=== PATIENT | female | born 1965 | race Caucasian/White ===

== ENCOUNTER 2016-10-22 12:58 | Emergency (ER) | payer BC ==
[2016-10-22 13:47] VITALS: BP 144/76
--- NOTE | 2016-10-22 15:30 | UC ---
General HPI - HPI Summary HPI Summary: COUGH AND CONGESTION FOR 1.5 WEEKS WITH SINUS PRESSURE AND EAR FULLNESS. TODAY HAD DIARRHEA AND VOMITNG x1 THIS MORNING. 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 Negative: Dysuria, Edema, Immunocompromised, In-Dwelling Medication Device, Melena, Palpitations, Recent Medication Changes, Syncope, SOB, Trauma, Wheezing, Weakness - Allergy/Home Medications Allergies/Adverse Reactions: Allergies Allergy/AdvReac Type Severity Reaction Status Date / Time Hydromorphone [From Dilaudid] Allergy Diaphoresis Verified 04/03/16 20:16 Latex Allergy Swelling Verified 04/03/16 20:16 Meperidine [From Demerol HCl] Allergy Diaphoresis Verified 04/03/16 20:16 Metformin and Related Allergy Nausea And Verified 04/03/16 20:16 Vomiting Morphine Allergy Diaphoresis Verified 04/03/16 20:16 Prochlorperazine Allergy Rash Verified 04/03/16 20:16 [From Compazine] Promethazine [From Phenergan] Allergy Rash Verified 04/03/16 20:16 Trimethobenzamide Allergy Rash Verified 04/03/16 20:16 [From Tigan] Ibuprofen AdvReac Unknown Verified 04/03/16 20:16 Reaction Details Home Medications: Home Medications GuaiFENesin DM* [Robitussin DM*] 10 ml PO Q6H PRN 10/22/16 [History Confirmed ] PMH/Surg Hx/FS Hx/Imm Hx Previously Healthy: Yes Endocrine History Of: Reports: Diabetes - CORRECTED W/ WEIGHT LOSS Denies: Thyroid Disease Cardiovascular History Of: Reports: Hypertension - CORRECTED W/ WEIGHT LOSS Denies: Cardiac Disorders, Pacemaker/ICD, Congestive Heart Failure Respiratory History Of: Denies: COPD, Asthma GI/ History Of: Denies: Gastroesophageal Reflux, Renal Disease Neurological History Of: Reports: Migraine Denies: CVA, Dementia, Seizures Cancer History Of: Denies: Breast Cancer Other History Of: Negative For: Anticoagulant Therapy - Surgical History Surgical History: Yes Surgery Procedure, Year, and Place: GALLBLADDER , LEFT KNEE, 2003 RT SHOULDER, 2007 RT ELBOW, C SECTION 1997, HYSTERECTOMY 2009; gastric bypass - Family History Known Family History: Positive: None, Cardiac Disease, Hypertension, Diabetes - Social History Occupation: Employed Full-time Lives: With Family Alcohol Use: Occasionally Substance Use Type: None Smoking Status (MU): Never Smoked Tobacco - Immunization History Most Recent Tetanus Shot: not sure Review of Systems Constitutional: Fever, Chills, Fatigue Skin: Negative Eyes: Negative ENT: Ear Ache, Nasal Discharge Respiratory: Cough Cardiovascular: Negative Gastrointestinal: Vomiting, Diarrhea Genitourinary: Negative Motor: Negative Neurovascular: Negative Musculoskeletal: Negative Neurological: Negative Psychological: Negative All Other Systems Reviewed And Are Negative: Yes Physical Exam Triage Information Reviewed: Yes Appearance: Well-Appearing, No Pain Distress, Well-Nourished Vital Signs: Initial Vital Signs Temp 97.8 F 10/22/16 13:44 Pulse 84 10/22/16 13:44 Resp 18 10/22/16 13:44 BP 144/76 10/22/16 13:44 Pulse Ox 97 10/22/16 13:44 Vital Signs Reviewed: Yes Eye Exam: Normal Eyes: Positive: Conjunctiva Clear ENT: Positive: Hearing grossly normal, Pharynx normal, Nasal congestion, TM bulging, TM dull Dental Exam: Normal Neck exam: Normal Neck: Positive: Supple, Nontender, No Lymphadenopathy Respiratory Exam: Normal Respiratory: Positive: Chest non-tender, Lungs clear, Normal breath sounds, No respiratory distress, No accessory muscle use Cardiovascular Exam: Normal Cardiovascular: Positive: RRR, No Murmur, Pulses Normal Abdomen Description: Positive: Nontender, No Organomegaly, Soft Bowel Sounds: Positive: Hyperactive Musculoskeletal Exam: Normal Musculoskeletal: Positive: Strength Intact, ROM Intact, No Edema Neurological Exam: Normal Psychological Exam: Normal Psychological: Positive: Normal Response To Family Course/Dx - Differential Dx - Multi-Symptom Differential Diagnoses: Metabolic Abnormality, Urinary Tract Infection Provider Diagnoses: GASTROENTERITIS. SINUSITIS Discharge - Discharge Plan Condition: Stable Disposition: HOME Prescriptions: Amoxicillin/Clavulanate TAB* [Augmentin TAB 875*] 875 mg PO BID #20 tab Benzonatate CAP* [Tessalon CAP*] 100 mg PO TID PRN #15 cap PRN Reason: Cough Patient Education Materials: Sinusitis (ED), Gastroenteritis (ED) Forms: *Work Release Referrals: Arabella Couch MD [Primary Care Provider] -
== END 2016-10-22 15:25 | disposition home or self-care (01) ==
LOC: UCEAST 12:58
DX: K52.9 Noninfective gastroenteritis and colitis, unspecified (principal); J32.9 Chronic sinusitis, unspecified; Z98.84 Bariatric surgery status; Z88.5 Allergy status to narcotic agent; Z88.6 Allergy status to analgesic agent; Z88.8 Allergy status to other drugs, medicaments and biological substances
CPT/HCPCS: 87502; 99212; G0463

== ENCOUNTER 2016-12-04 15:01 | Emergency (ER) | payer BC ==
[2016-12-04 15:13] VITALS: BP 183/94
[2016-12-04] MEDS ORDERED: HYDROcodone/ACETAMIN 5-325 MG* 1 TAB PO ONE ×2 (15:33→16:44)
--- NOTE | 2016-12-04 16:12 | RAD ---
INDICATION: Dysuria. Flank pain. COMPARISON: CT February 18, 2014 TECHNIQUE: Noncontrast axial source images were acquired from the level hemidiaphragms to the symphysis pubis as part of CT imaging for renal stone. Lung bases: The lung bases are clear. Liver: The liver is normal in size. Noncontrast imaging shows no evidence of a hepatic mass or ductal dilatation. Gallbladder: Cholecystectomy. Spleen: The spleen is normal in size. The noncontrast CT appearance is normal. Pancreas: Noncontrast imaging shows no pancreatic mass or ductal dilitation. Adrenal glands: No masses are identified. Kidneys/Bladder: There is a 2 mm calculus near the left UVJ with resultant mild obstructive findings. There are no other calcifications of urinary significance. The noncontrast CT appearance the kidneys otherwise unremarkable. Adenopathy: There is no evidence of intraperitoneal or retroperitoneal adenopathy. Evaluation is limited without oral contrast. Fluid collections: There are no free or localized fluid collections. Vessels: The aorta and iliac vessels are normal in caliber. There are no significant atherosclerotic changes. The IVC appears normal Pelvic organs: Hysterectomy. No adnexal mass GI tract: Evaluation GI tract is limited without oral contrast. There is bariatric surgery. The upper and lower GI tract are otherwise unremarkable on noncontrast imaging. The appendix is visualized and appears normal Soft tissues: No soft tissue abnormalities of the extraperitoneal abdomen or pelvis are identified. Osseous structures: There are no acute osseous findings. IMPRESSION: 2 MM CALCULUS NEAR THE LEFT UVJ WITH RESULTANT MILD OBSTRUCTIVE FINDINGS
--- NOTE | 2016-12-04 20:58 | UC ---
Chanelle Castañeda Michael, scribed for Aurea Morales DO on 12/04/16 at 1607 . Complaint Female HPI - HPI Summary HPI Summary: 51 y/o female comes to [facility] presenting with increased urination frequency that started one day ago. The pt reports that the increased urination frequency worsened this morning. Her urine has had no color change in the past two days. Today, she has had to urinate every 30 minutes and at 1200 intermittent left flank pain started. The pt describes the pain as a 7-8 out of 10 on a pain severity scale and radiates to her abd. The flank pain is not alleviated or aggravated by anything. She also c/o nausea and vomiting. The pt had 2 vomiting episodes today. She denies fever, dysuria, CARLOS, and all other symptoms. The PMHx is significant for pyelonephritis, HTN, and DM. In the past 9 years, she has had only one episode of pyelonephritis. She normally does not experience dysuria with pyelonephritis. The FHx is significant for cardiac disease, CA, DM, HTN, and kidney stones. - History Of Current Complaint Chief Complaint: UCBackPain Stated Complaint: LEFT FLANK PAIN Time Seen by Provider: 12/04/16 15:16 Hx Obtained From: Patient, Medical Records Hx Last Menstrual Period: hysterectomy Onset/Duration: Gradual Onset, Lasting Days, Still Present, Worse Since - today Timing: Intermittent Severity Initially: Mild Severity Currently: Moderate Pain Intensity: 7 Pain Scale Used: 0-10 Numeric Radiates to: left flank pain that radiates to abd Character: Sharp Aggravating Factor(s): Nothing Alleviating Factor(s): Nothing Associated Signs And Symptoms: Positive: Back Pain - left flank pain and increased urination frequency, Nausea, Vomiting(# Of Episodes =) - 2. Negative : Fever - Allergies/Home Medications Allergies/Adverse Reactions: Allergies Allergy/AdvReac Type Severity Reaction Status Date / Time Hydromorphone [From Dilaudid] Allergy Diaphoresis Verified 12/04/16 15:14 Latex Allergy Swelling Verified 12/04/16 15:14 Meperidine [From Demerol HCl] Allergy Diaphoresis Verified 12/04/16 15:14 Metformin and Related Allergy Nausea And Verified 12/04/16 15:14 Vomiting Morphine Allergy Diaphoresis Verified 12/04/16 15:14 Prochlorperazine Allergy Rash Verified 12/04/16 15:14 [From Compazine] Promethazine [From Phenergan] Allergy Rash Verified 12/04/16 15:14 Trimethobenzamide Allergy Rash Verified 12/04/16 15:14 [From Tigan] Ibuprofen AdvReac Unknown Verified 12/04/16 15:14 Reaction Details PMH/Surg Hx/FS Hx/Imm Hx - Additional Past Medical History Additional PMH: pyelonephritis Endocrine History Of: Reports: Diabetes - CORRECTED W/ WEIGHT LOSS Denies: Thyroid Disease Cardiovascular History Of: Reports: Hypertension - CORRECTED W/ WEIGHT LOSS Denies: Cardiac Disorders, Pacemaker/ICD, Congestive Heart Failure Respiratory History Of: Denies: COPD, Asthma GI/ History Of: Denies: Gastroesophageal Reflux, Kidney Stones, Renal Disease Neurological History Of: Reports: Migraine Denies: CVA, Dementia, Seizures Cancer History Of: Denies: Breast Cancer Other History Of: Negative For: Anticoagulant Therapy - Surgical History Surgical History: Yes Surgery Procedure, Year, and Place: GALLBLADDER , LEFT KNEE, 2003 RT SHOULDER, 2007 RT ELBOW, C SECTION 1997, HYSTERECTOMY 2009; gastric bypass - Family History Known Family History: Positive: Cardiac Disease, Hypertension, Diabetes, Other - kidney stones. CA. - Social History Occupation: Employed Full-time Lives: With Family Alcohol Use: Occasionally Substance Use Type: None Smoking Status (MU): Never Smoked Tobacco - Immunization History Most Recent Tetanus Shot: not sure Review of Systems Constitutional: Negative Skin: Negative Eyes: Negative ENT: Negative Respiratory: Negative Cardiovascular: Negative Gastrointestinal: Vomiting, Other - nausea Genitourinary: Frequency, Other - left flank pain Motor: Negative Neurovascular: Negative Musculoskeletal: Negative Neurological: Negative Psychological: Negative All Other Systems Reviewed And Are Negative: Yes Physical Exam Triage Information Reviewed: Yes Appearance: Well-Appearing, Pain Distress - moderate, Obese Vital Signs: Initial Vital Signs Temp 98.5 F 12/04/16 15:06 Pulse 78 12/04/16 15:06 Resp 22 12/04/16 15:06 BP 183/94 12/04/16 15:06 Pulse Ox 100 12/04/16 15:06 Vital Signs Reviewed: Yes Eyes: Positive: Conjunctiva Clear. Negative: Discharge ENT: Positive: Hearing grossly normal. Negative: Muffled/hoarse voice Neck: Positive: Supple, Nontender Respiratory: Positive: Lungs clear, Normal breath sounds, No respiratory distress, No accessory muscle use Cardiovascular: Positive: RRR, No Murmur Abdomen Description: Positive: Soft, CVA Tenderness (R) - since pt was tender to moderate palpation of CVA kidney punch was deferred.. Negative: Nontender - very tender to palpation over left side of abd, Distended, Guarding Musculoskeletal Exam: Normal Neurological: Positive: Alert, Muscle Tone Normal Psychological: Positive: Age Appropriate Behavior Skin Exam: Normal - nml color. warm. dry. Diagnostics - Radiology CT ABD/PEL Xray Interpretation: Positive (See Comments) - 2mm calculus near the left UVJ with resualtant mild obstructive findings Radiology Interpretation Completed By: Radiologist Complaint Female Dx - Differential Dx/Diagnosis Differential Diagnosis/HQI/PQRI: Renal Colic, Ureteral Stone, Urinary Tract Infection Provider Diagnoses: kidney stone Discharge - Discharge Plan Condition: Stable Disposition: HOME Prescriptions: HYDROcodone/ACETAMIN 5-325 MG* [[place] 5-325 TAB*] 1 tab PO Q6H PRN #14 tab MDD 4 TABS PRN Reason: Pain Ondansetron TAB* [Zofran Tab*] 4 mg PO Q6H PRN #10 tab PRN Reason: Nausea/Vomiting Tamsulosin HCl [Flomax] 0.4 mg PO DAILY #7 cap Patient Education Materials: Tamsulosin (By mouth), Kidney Stones (ED) Referrals: Arabella Couch MD [Primary Care Provider] - (follow up in 3-5 days) Additional Instructions: ORAL NARCOTIC MEDICATION: You have been given a prescription for pain control. This medication is a narcotic. It's best taken with food, as nausea can result if taken on an empty stomach. Don't operate machinery or drive within six hours of taking this medication. Do not combine this medicine with alcohol, or with any medication which can cause sedation (such as cold tablets or sleeping pills) unless you get permission from the physician. Narcotics tend to cause constipation. If possible, drink plenty of fluids and eat a diet high in fiber and fruits. The documentation as recorded by the Chanelle paz Michael accurately reflects the service I personally performed and the decisions made by me, Aurea Morales DO.
[2016-12-05 12:40] LABS: Urine Bacteria Absent (Absent); Urine Bilirubin Negative (Negative); Urine Glucose Negative (Negative); Urine Nitrite Negative (Negative)
== END 2016-12-04 17:19 | disposition home or self-care (01) ==
LOC: UCEAST 15:01
DX: N20.0 Calculus of kidney (principal); E66.9 Obesity, unspecified; Z98.84 Bariatric surgery status; Z90.49 Acquired absence of other specified parts of digestive tract; Z88.6 Allergy status to analgesic agent; Z88.5 Allergy status to narcotic agent; Z88.8 Allergy status to other drugs, medicaments and biological substances
CPT/HCPCS: 74176; 81003; 81015; 87086; 99212; G0463

== ENCOUNTER 2017-02-17 17:13 | Emergency (ER) | payer BC ==
[2017-02-17 17:49] VITALS: BP 143/68
--- NOTE | 2017-02-17 18:32 | RAD ---
INDICATION: Left shoulder pain and reduced range of motion after a fall COMPARISON: Similar examination dated October 29, 2012 TECHNIQUE: 4 views of the left shoulder were obtained. FINDINGS: The adequately corticated bones are in normal alignment. Joint spaces appear maintained. No fracture, dislocation or focal bony abnormality is seen. IMPRESSION: Normal radiograph of the left shoulder. If the patient's symptoms persist, follow-up imaging is recommended.
--- NOTE | 2017-02-17 18:56 | UC ---
Shoulder Pain HPI - HPI Summary HPI Summary: LEFT SHOUDLER PAIN AFTER FALL THIS MORNING. FELL DOWN 6 STEPS AFTER FOOT CAUGHT AND MISSED STEP. NO NECK PAIN. NO LOC OR HEAD TRAUMA. LANDED ON LEFT SHOULDER. - History of Current Complaint Chief Complaint: UCUpperExtremity Stated Complaint: LEFT SHOULDER PAIN POST FALL Time Seen by Provider: 02/17/17 17:48 Hx Obtained From: Patient Hx Last Menstrual Period: hysterectomy Onset/Duration: Sudden Onset, Lasting Hours, Still Present Timing: Constant Severity Initially: Moderate Severity Currently: Moderate Location Of Pain: Is Discrete @ - LEFT SHOULDER Character: Dull, Aching, Spasmodic Aggravating Factor(s): Movement, Lifting, Flexion, Extension, Internal Rotation , External Rotation Alleviating Factor(s): Rest, Ice, OTC Meds Associated Signs And Symptoms: Positive: Negative. Negative: Swelling, Redness , Bruising, Numbness/Tingling Related History: Dominant Hand Right - Risk Factors Non-Orthopedic Risk Factor: Negative DVT Risk Factors: Negative Septic Arthritis Risk Factor: Negative - Allergies/Home Medications Allergies/Adverse Reactions: Allergies Allergy/AdvReac Type Severity Reaction Status Date / Time Hydromorphone [From Dilaudid] Allergy Diaphoresis Verified 02/17/17 17:43 Latex Allergy Swelling Verified 02/17/17 17:43 Meperidine [From Demerol HCl] Allergy Diaphoresis Verified 02/17/17 17:43 Metformin and Related Allergy Nausea And Verified 02/17/17 17:43 Vomiting Morphine Allergy Diaphoresis Verified 02/17/17 17:43 Prochlorperazine Allergy Rash Verified 02/17/17 17:43 [From Compazine] Promethazine [From Phenergan] Allergy Rash Verified 02/17/17 17:43 Trimethobenzamide Allergy Rash Verified 02/17/17 17:43 [From Tigan] Ibuprofen AdvReac Unknown Verified 02/17/17 17:43 Reaction Details PMH/Surg Hx/FS Hx/Imm Hx Previously Healthy: Yes Endocrine History Of: Reports: Diabetes - CORRECTED W/ WEIGHT LOSS Denies: Thyroid Disease Cardiovascular History Of: Reports: Hypertension - CORRECTED W/ WEIGHT LOSS Denies: Cardiac Disorders, Pacemaker/ICD, Congestive Heart Failure Respiratory History Of: Denies: COPD, Asthma GI/ History Of: Denies: Gastroesophageal Reflux, Kidney Stones, Renal Disease Neurological History Of: Reports: Migraine Denies: CVA, Dementia, Seizures Cancer History Of: Denies: Breast Cancer Other History Of: Negative For: Anticoagulant Therapy - Surgical History Surgical History: Yes Surgery Procedure, Year, and Place: GALLBLADDER , LEFT KNEE, 2003 RT SHOULDER, 2007 RT ELBOW, C SECTION 1997, HYSTERECTOMY 2009; gastric bypass - Family History Known Family History: Positive: None, Cardiac Disease, Hypertension, Diabetes, Other - kidney stones. [place]. - Social History Occupation: Employed Full-time Lives: With Family Alcohol Use: Occasionally Substance Use Type: None Smoking Status (MU): Never Smoked Tobacco - Immunization History Most Recent Influenza Vaccination: NONE Most Recent Tetanus Shot: UTD Review of Systems Constitutional: Negative Skin: Negative Eyes: Negative ENT: Negative Respiratory: Negative Cardiovascular: Negative Gastrointestinal: Negative Genitourinary: Negative Motor: Negative Neurovascular: Negative Musculoskeletal: Arthralgia - LEFT SHOULDER, Myalgia Neurological: Negative Psychological: Negative All Other Systems Reviewed And Are Negative: Yes Physical Exam Triage Information Reviewed: Yes Appearance: Well-Appearing, Well-Nourished, Pain Distress - MILD Vital Signs: Initial Vital Signs Temp 97 F 02/17/17 17:44 Pulse 87 02/17/17 17:44 Resp 18 02/17/17 17:44 BP 143/68 02/17/17 17:44 Pulse Ox 99 02/17/17 17:44 Vital Signs Reviewed: Yes Eye Exam: Normal ENT Exam: Normal ENT: Positive: Normal ENT inspection, Hearing grossly normal, TMs normal Dental Exam: Normal Neck exam: Normal Neck: Positive: Supple, Nontender, No Lymphadenopathy. Negative: Nuchal Rigidity, Tenderness @ Respiratory Exam: Normal Respiratory: Positive: Chest non-tender, Lungs clear, Normal breath sounds, No respiratory distress, No accessory muscle use Cardiovascular Exam: Normal Cardiovascular: Positive: RRR, No Murmur, Pulses Normal Abdominal Exam: Normal Musculoskeletal: Positive: No Edema, Strength Limited @ - LEFT SHOUDLER, ROM Limited @ - LEFT SHOULDER Neurological Exam: Normal Psychological Exam: Normal Skin Exam: Normal Shoulder Course/Dx - Differential Dx/Diagnosis Differential Diagnosis/HQI/PQRI: AC Separation, Arthritis, Contusion, Fracture ( Closed), Sprain, Strain Provider Diagnoses: LEFT SHOUDLER SPRAIN Discharge - Discharge Plan Condition: Stable Disposition: HOME Prescriptions: Cyclobenzaprine TAB* [Flexeril 10 MG TAB*] 10 mg PO BID PRN #10 tab PRN Reason: Spasms Patient Education Materials: Shoulder Sprain (ED) Forms: *Work Release Referrals: Ameya Robin MD [Medical Doctor] - Arabella Couch MD [Primary Care Provider] - Deshawn Yee MD [Medical Doctor] - Additional Instructions: PHYSICAL THERAPY REFERRAL: You have been prescribed physical therapy. Treatments may include stretching, exercise, application of heat or cold, and other modalities. After an injury, PT can reduce swelling and pain. In recovery, PT is used to restore mobility and strength. Your specific treatment goals are: ___X__ Reduction of Swelling (EGS, US, ice as needed) ____X_ Pain Reduction (EGS, US, ice as needed) TENS Pack Fitting and Instruction Wound Hydrotherapy __X___ Preservation of Mobility ___X__ Yarsanism of Mobility ___X__ Strength Yarsanism ___X__ Work or Sports Hardening This instruction sheet also serves as your PHYSICAL THERAPY REFERRAL! Please take it with you to the therapist, so he/she will be aware of your diagnosis and treatment plan. You may see the physical therapist of your choice for these treatments, but may wish to check with your insurance to be sure the provider you select is covered. It's important to see the doctor to whom you have been referred for follow up.
== END 2017-02-17 18:47 | disposition home or self-care (01) ==
LOC: UCCORT 17:13
DX: S43.402A Unspecified sprain of left shoulder joint, initial encounter (principal); W10.9XXA Fall (on) (from) unspecified stairs and steps, initial encounter; Y93.9 Activity, unspecified; Y92.9 Unspecified place or not applicable; Z88.5 Allergy status to narcotic agent; Z88.6 Allergy status to analgesic agent; Z88.8 Allergy status to other drugs, medicaments and biological substances; Z91.040 Latex allergy status; G43.909 Migraine, unspecified, not intractable, without status migrainosus; Z90.49 Acquired absence of other specified parts of digestive tract; Z90.710 Acquired absence of both cervix and uterus; Z98.84 Bariatric surgery status
CPT/HCPCS: 99213; G0463

== ENCOUNTER 2017-10-12 14:30 | Emergency (ER) | payer SELFPAY ==
[2017-10-12 15:53] VITALS: BP 144/66
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
== END 2017-10-12 18:00 | disposition home or self-care (01) ==
LOC: UCEAST 14:30
DX: S80.01XA Contusion of right knee, initial encounter (principal); W50.1XXA Accidental kick by another person, initial encounter; Y93.9 Activity, unspecified; Y92.219 Unspecified school as the place of occurrence of the external cause; Y99.0 Civilian activity done for income or pay; R03.0 Elevated blood-pressure reading, without diagnosis of hypertension; Z90.710 Acquired absence of both cervix and uterus; Z90.49 Acquired absence of other specified parts of digestive tract; Z98.84 Bariatric surgery status; Z88.5 Allergy status to narcotic agent; Z88.8 Allergy status to other drugs, medicaments and biological substances; Z88.6 Allergy status to analgesic agent; Z91.040 Latex allergy status
CPT/HCPCS: 99211; G0463

== ENCOUNTER 2017-12-10 19:17 | Emergency (ER) | payer BC, OTHER ==
[2017-12-10 20:02] VITALS: BP 134/73
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
--- NOTE | 2017-12-10 20:59 | RAD ---
Indication: RIGHT fourth and fifth metatarsal phalangeal joint pain following injury. Comparison: No relevant prior exams available on the [facility] [place]. Technique: AP, lateral, and oblique views RIGHT foot. Report: Negative for fracture or malalignment. Polyarticular mild osteoarthritis from the talocrural joint through the first metatarsal joint. Moderate enthesophyte at the base of the fifth metatarsal. Small Achilles tendon insertion and moderate plantar fascia origin bone spurs. Mild predominant plantar and lateral soft tissue swelling. IMPRESSION: Negative for fracture.
== END 2017-12-10 21:58 | disposition home or self-care (01) ==
LOC: UCEAST 19:17
DX: M79.674 Pain in right toe(s) (principal); S90.121A Contusion of right lesser toe(s) without damage to nail, initial encounter; W22.09XA Striking against other stationary object, initial encounter; Y93.9 Activity, unspecified; Y92.9 Unspecified place or not applicable; M19.071 Primary osteoarthritis, right ankle and foot; M77.51 Other enthesopathy of right foot and ankle; E11.9 Type 2 diabetes mellitus without complications; I10 Essential (primary) hypertension; Z88.5 Allergy status to narcotic agent; Z88.8 Allergy status to other drugs, medicaments and biological substances; Z88.6 Allergy status to analgesic agent; Z91.040 Latex allergy status
CPT/HCPCS: 99213; G0463

== ENCOUNTER 2018-02-22 16:27 | Emergency (ER) | payer BC ==
[2018-02-22 16:53] VITALS: BP 123/65
--- NOTE | 2018-02-22 17:31 | UC ---
Bite Injury/Animal HPI - HPI Summary HPI Summary: PT had a tick on left lower medial leg on Wednesday - pt pulled off Pt states used a "match" to pull it out. PT comfortable completely removed tick pt concerned second to erythema ring remaining today. Pt is schedule for a TKR in 1 month and doesn't want anything to postpone this Pt's tdap UTD Pt not immunocompromised Pt's medications reviewed this visit - History of Current Complaint Chief Complaint: [place] Stated Complaint: TICK BITE Time Seen by Provider: 02/22/18 17:22 Hx Obtained From: Patient Hx Last Menstrual Period: menopause Severity Currently: None Pain Intensity: 0 Onset/Duration: Sudden Onset Type of Bite: Wild Animal - Allergies/Home Medications Allergies/Adverse Reactions: Allergies Allergy/AdvReac Type Severity Reaction Status Date / Time hydromorphone [From Dilaudid] Allergy Severe Diaphoresis Verified 12/10/17 20:03 latex Allergy Severe Swelling Verified 12/10/17 20:03 meperidine [From Demerol] Allergy Severe Diaphoresis Verified 12/10/17 20:03 metformin Allergy Severe Nausea And Verified 12/10/17 20:03 Vomiting morphine Allergy Severe Diaphoresis Verified 12/10/17 20:03 prochlorperazine Allergy Severe Rash Verified 12/10/17 20:03 [From Compazine] promethazine [From Phenergan] Allergy Severe Rash Verified 12/10/17 20:03 trimethobenzamide Allergy Severe Rash Verified 12/10/17 20:03 [From Tigan] ibuprofen Allergy See Comment Verified 12/10/17 20:03 PMH/Surg Hx/FS Hx/Imm Hx Previously Healthy: Yes Other History Of: Negative For: Anticoagulant Therapy - Surgical History Surgical History: Yes Surgery Procedure, Year, and Place: GALLBLADDER , LEFT KNEE, 2003 RT SHOULDER, 2007 RT ELBOW, C SECTION 1997, HYSTERECTOMY 2009; gastric bypass - Family History Known Family History: Positive: None, Cardiac Disease, Hypertension, Diabetes, Other - kidney stones. CA. - Social History Occupation: Employed Full-time Lives: With Family Alcohol Use: Occasionally Substance Use Type: None Smoking Status (MU): Never Smoked Tobacco - Immunization History Most Recent Influenza Vaccination: NONE Most Recent Tetanus Shot: UTD Review of Systems Constitutional: Negative Skin: Other - LLE erythema s/p tick removal All Other Systems Reviewed And Are Negative: Yes Physical Exam Triage Information Reviewed: Yes Appearance: Well-Appearing, No Pain Distress, Well-Nourished Vital Signs: Initial Vital Signs Temp 97.2 F 02/22/18 16:44 Pulse 107 02/22/18 16:44 Resp 16 02/22/18 16:44 BP 123/65 02/22/18 16:44 Pulse Ox 98 02/22/18 16:44 Vital Signs Reviewed: Yes Eyes: Positive: Conjunctiva Clear ENT: Positive: Hearing grossly normal Dental Exam: Normal Neck: Positive: Supple Respiratory: Positive: No respiratory distress, No accessory muscle use Cardiovascular: Positive: Other: - 2+ PT Musculoskeletal Exam: Normal Musculoskeletal: Positive: Strength Intact Neurological Exam: Normal Neurological: Positive: Alert Psychological Exam: Normal Psychological: Positive: Normal Response To Family Skin: Positive: Other - left medial distal LE pt with quarter size erythema with central puncture where tick removed No fluctuance, no drainage, no odor no retained part under magnification Bite Injury Course/Dx - Course Course Of Treatment: Pt with a tick she removed Sat. Pt persistent local reaction - no concern for infeciton. had long discussion with pt regarding CDC recommendations re prophylaxis. Pt requesting prophylaxis - given. d/w pt wound care. return precautions. agreement with plan - Differential Dx/Diagnosis Provider Diagnoses: tick bite Discharge - Sign-Out/Discharge Documenting (check all that apply): Discharge/Admit/Transfer - Discharge Plan Condition: Stable Disposition: HOME Patient Education Materials: Tick Bite (ED) Referrals: Arabella Couch MD [Primary Care Provider] - Additional Instructions: Keep area clean and dry. Return if you develop increased reddness, red streaking , drainage, odor cover your wound with a thin layer of antibiotics ointment and a bandaid Check yourself daily for ticks after you have been working in the [employer] Contact your doctor or return with questions or concerns Approach to prophylaxis : According to the Infectious Diseases Society of [place] (IDSA) guidelines that recommend antibiotic prophylaxis only in patients who meet all of the following criteria: 1. Attached tick identified as an adult or nymphal I. scapularis tick (deer tick). 2. Tick is estimated to have been attached for 36 hours (by degree of engorgement or time of exposure). 3. Prophylaxis is begun within 72 hours of tick removal. Local rate of infection of ticks with B. burgdorferi is 20 percent if attached for over 48 hours (these rates of infection have been shown to occur in parts of [place], parts of the [facility], and parts of [place] and [place]). If you experience a tick and time of attachment is believed to be less than 36 hours, you may remove the tick with head intact and no need for prophylaxis. If over 36 hours, please come into UC. Prophylactic doxycycline is not recommended for ticks attached less than 36 hours. After discussion at today's visit, you were given the one time prophylatic for lyme disease - Billing Disposition and Condition Condition: STABLE Disposition: HOME
[2018-02-22] MEDS ORDERED: DOXYcycline CAP(*) 100 MG PO ONE (17:45)
== END 2018-02-22 18:03 | disposition home or self-care (01) ==
LOC: UCEAST 16:27
DX: S80.862A Insect bite (nonvenomous), left lower leg, initial encounter (principal); W57.XXXA Bitten or stung by nonvenomous insect and other nonvenomous arthropods, initial encounter; Y93.9 Activity, unspecified; Y92.9 Unspecified place or not applicable; Z88.5 Allergy status to narcotic agent; Z88.8 Allergy status to other drugs, medicaments and biological substances; Z88.6 Allergy status to analgesic agent; Z91.040 Latex allergy status
CPT/HCPCS: 99212; A9270-GY; G0463

== ENCOUNTER 2018-03-21 02:21 | Inpatient (IN) | payer BC ==
--- NOTE | 2018-03-07 19:37 | HP ---
HISTORY AND PHYSICAL: DATE OF ADMISSION/SURGERY: 03/21/18 SURGERY: Right total knee replacement. SURGEON: Pavan Davis MD * (DICTATED BY ZAN SANCHEZ) CHIEF COMPLAINT: Right knee pain. HISTORY OF PRESENT ILLNESS: The patient is a 52-year-old female who presents today for history and physical examination prior to undergoing a right total knee replacement by Dr. Davis on 03/21/18. The patient has had troubles with osteoarthritis of her right knee for quite some time and has failed conservative treatments, which include exercise and NSAID's. She has been participating in physical therapy as well, which has not proven to be beneficial and has elected to undergo a right total knee arthroplasty by Dr. Davis. PAST MEDICAL HISTORY: History of diabetes, resolved after gastric bypass in 2015. PAST SURGICAL HISTORY: 1. Gastric bypass in 2015. 2. Right shoulder surgery. 3. Right elbow surgery. 4. Left tibial osteotomy in 1992. 5. . 6. Radical hysterectomy. MEDICATIONS: 1. Voltaren gel p.r.n. 2. Tylenol p.r.n. ALLERGIES: 1. DILAUDID. 2. MORPHINE. 3. DEMEROL. 4. COMPAZINE. 5. PHENERGAN. 6. TIGAN. 7. REGLAN. 8. LATEX. 9. TAPE. 10. METFORMIN. 11. PRILOSEC. The patient has been able to take [place] in the past without difficulty. FAMILY HISTORY: Positive for cancer, heart disease, and hypertension. SOCIAL HISTORY: Negative for tobacco use. Positive for alcohol use, less than 1 drink per week. Currently living in a 1-story home with a ramp with her . The patient would like to be discharged home postoperatively if at all possible. REVIEW OF SYSTEMS: General: Negative for headache, lightheadedness, dizziness. Has had difficulty with nausea with anesthesia in the past. Hematologic: Positive for PE and DVT in 1992. : Positive for kidney stones in 2016. HEENT: No history of epilepsy or seizures. No difficulty with swallowing. Cardiac: Negative for chest pain, edema, palpitations. Lungs: Negative for shortness of breath, chronic cough, COPD. Abdomen: Negative for nausea, vomiting, constipation, diarrhea. Neurologic: No numbness or paresthesias. No history of lower back pain. Infectious Disease: No history of MRSA or VRE. No history of HIV, hepatitis. Integument: No open wounds or sores. No difficulty with wound healing. Endocrine: Positive for diabetes, resolved after gastric bypass surgery. Negative for thyroid disease. PHYSICAL EXAMINATION GENERAL: Well appearing, in no acute distress, alert and oriented, appears stated age. VITAL SIGNS: Height 64 inches, weight 243 pounds. Pulse 64, blood pressure 138 /84, respirations 16, temperature 97.4. BMI of 41.8. HEENT: Normocephalic, atraumatic. LUNGS: Clear to auscultation bilaterally. No crackles, rhonchi, or wheezes. CARDIAC: Regular rate and rhythm. No murmurs, gallops, or rubs. ABDOMEN: Soft, nontender. Moderately obese. Negative CVA tenderness bilaterally. No organomegaly palpable. MUSCULOSKELETAL: Right knee with range of motion 0 to 150 degrees. No instability with valgus and varus stress. Negative Megha sign. Negative Homans. Posterior tibial pulse 2+ bilaterally. Dorsiflexion and plantarflexion equal bilaterally. Good strength throughout knee joints. No effusion noted. ASSESSMENT: Osteoarthritis, end stage, right knee. PLAN: The patient is scheduled to undergo a right total knee arthroplasty with Dr. Davis on 03/21/18. The risks and benefits of the surgery were discussed with the patient who voiced full understanding. She will undergo medical clearance by Dr. Couch on 03/10/18. She will likely do physical therapy as an outpatient at [facility] as she has already done this at [facility]. She has no other questions or concerns. ZAN SANCHEZ [id number]/CPS #: [id number] MICHELA
[2018-03-21] MEDS ORDERED: Scopolamine 1.5 mg* PATCH TRANSDERM ONE (06:00)
[2018-03-21] MEDS ORDERED: celeCOXIB CAP* 200 MG PO ONE (06:00)
[2018-03-21] MEDS ORDERED: Gabapentin CAP(*) 300 MG PO ONE (06:00)
[2018-03-21] MEDS ORDERED: Ondansetron INJ* 2 MG/ML VIAL IV ONE (06:00)
[2018-03-21] MEDS ORDERED: Buffered Lidocaine 0.9% SYRIN* 5 ML/SYR SYRINGE INTRADERM ONE (06:00)
[2018-03-21] MEDS ORDERED: Famotidine IV* 10 MG/ML 2 ML (20 mg) IV ONE (06:00)
[2018-03-21] MEDS ORDERED: Acetaminophen TAB* 325 MG PO ONE (06:00)
[2018-03-21] MEDS ORDERED: Famotidine IV* 10 MG/ML 2 ML (20 mg) ONE (06:13)
[2018-03-21] MEDS ORDERED: celeCOXIB CAP* 100 MG ONE (06:13)
[2018-03-21] MEDS ORDERED: Scopolamine 1.5 mg* PATCH ONE (06:14)
[2018-03-21] MEDS ORDERED: Ondansetron ODT TAB* 4 MG ONE ×2 (06:14→06:58)
[2018-03-21] MEDS ORDERED: Gabapentin CAP(*) 300 MG ONE (06:14)
[2018-03-21] MEDS ORDERED: Buffered Lidocaine 0.9% SYRIN* 5 ML/SYR SYRINGE ONE (06:15)
[2018-03-21] MEDS ORDERED: Acetaminophen TAB* 325 MG ONE (06:15)
[2018-03-21] MEDS ORDERED: ceFAZolin 2 GM PREMIX (*) 2 GM/50 ML BAG IVPB ONE (06:15)
[2018-03-21] MEDS ORDERED: Dexamethasone IV* 4 MG/ML 1 ML (4 MG) ONE (06:58)
[2018-03-21] MEDS ORDERED: ROPIVACAINE 5 MG/ML 30 ML BTL (0.5%) ONE (06:58)
[2018-03-21] MEDS ORDERED: Propofol* 10 MG/ML 20 ML BTL IV PUSH ONE (06:58)
[2018-03-21] MEDS ORDERED: fentaNYL* 50 MCG/ML 2 ML VIAL (100 MCG VIAL) ONE (06:58)
[2018-03-21] MEDS ORDERED: Lidocaine 2% PF * 5 ML VIAL ONE ×3 (06:58→08:10)
[2018-03-21] MEDS ORDERED: KETAMINE HCL* 50 MG/ML 10 ML VIAL ONE (06:59)
[2018-03-21] MEDS ORDERED: Midazolam* 1 MG/ML 10 ML VIAL (10 MG) ONE (06:59)
[2018-03-21] MEDS ORDERED: Bupivacaine 0.5% PF 10 ML VIAL INJ ONE (07:21)
[2018-03-21] MEDS ORDERED: Lidocaine 1% MPF wEPI 200,000* 30 ML SDV ONE (07:23)
[2018-03-21] MEDS ORDERED: Bupivacaine 0.5% SDV PF* 30ML VIAL ONE (07:24)
[2018-03-21] MEDS ORDERED: Labetalol IV* 5 MG/ML 20 ML VIAL ONE (08:01)
[2018-03-21] MEDS ORDERED: Propofol* 500 MG/50 ML BTL ONE (08:08)
[2018-03-21] MEDS ORDERED: Naloxone* 0.4 MG/ML 1 ML VIAL IV PRN (09:03)
[2018-03-21] MEDS ORDERED: Ondansetron INJ* 2 MG/ML VIAL IV PRN (09:03)
[2018-03-21] MEDS ORDERED: fentaNYL* 50 MCG/ML 2 ML VIAL (100 MCG VIAL) IV PRN (09:03)
[2018-03-21] MEDS ORDERED: Magnesium Hydroxide LIQ* 30 ML UDC PO PRN (09:55)
[2018-03-21] MEDS ORDERED: diPHENhydraMINE PO* 25 MG PO PRN (09:55)
[2018-03-21] MEDS ORDERED: diPHENhydraMINE IV* 50 MG/ML 1 ml VIAL (BENADRYL) IV PRN (09:55)
[2018-03-21] MEDS ORDERED: Morphine VIAL* 4 MG/ML VIAL (1 ml vial) IV PRN ×2 (09:55)
[2018-03-21] MEDS ORDERED: Cyclobenzaprine TAB* 10 MG PO PRN (09:55)
[2018-03-21] MEDS ORDERED: D5W 1/2 NS 1000 ML BAG* 1,000 ML IV SCH (10:00)
--- NOTE | 2018-03-21 12:03 | RAD ---
Indication: Status post right knee arthroplasty 2 views of the right knee demonstrates bipolar right knee arthroplasty in satisfactory position. Joint effusion is noted. Surgical clips are noted. No evidence of periprosthetic fracture is noted. IMPRESSION: Right knee replacement in satisfactory position.
[2018-03-21] MEDS: traMADol TAB* 50 MG PO SCH ×3 (12:22→22:40)
[2018-03-21] MEDS: Acetaminophen TAB* 325 MG PO SCH ×2 (14:05→22:41)
[2018-03-21] MEDS: oxyCODONE TAB* 5 MG TAB PO PRN ×2 (14:06→21:02)
--- NOTE | 2018-03-21 15:39 | CONS ---
HOSPITAL MEDICINE CONSULTATION REPORT: DATE OF CONSULT: 03/21/18 ATTENDING PHYSICIAN: Dr. Pavan Davis. CONSULTING PHYSICIAN: Dr. Ernst Kumar (dictation provided by Mohini Quezada NP) . REASON FOR CONSULT: Medical co-management in a patient admitted for right total knee arthroplasty. HISTORY OF PRESENT ILLNESS: Ms. Li is a 52-year-old female with a past medical history of a tibial osteotomy in 1992 requiring her to be nonweightbearing on that leg for 6 to 8 weeks resulting in a DVT, who has had no issue with clot since, as well as a history of diabetes that resolved after gastric bypass surgery in 2015, who presents to the hospital today for a planned right total knee arthroplasty. Please see the dictated H and P from Dr. Davis for complete details. In brief, the patient had had ongoing pain in the right leg and right knee and for that reason ultimately decided for surgical intervention when conservative medical treatments failed. The patient states that prior to coming in for surgery she has been feeling well with absolutely no acute complaints. PAST MEDICAL HISTORY: Diabetes, resolved after gastric bypass surgery. PAST SURGICAL HISTORY: 1. Gastric bypass in 2015. 2. Right shoulder surgery. 3. Right elbow surgery. 4. Left tibial osteotomy in 1992. 5. with radical hysterectomy. MEDICATIONS: 1. Voltaren gel p.r.n. 2. Tylenol p.r.n. ALLERGIES: To DILAUDID, MORPHINE, DEMEROL, COMPAZINE, PHENERGAN, TIGAN, REGLAN , LATEX, TAPE, METFORMIN, PRILOSEC. FAMILY HISTORY: The patient reports that there is a history of cancer, heart disease, and hypertension in the family. SOCIAL HISTORY: No report of tobacco use. The patient drinks less than one drink per week. She states she lives with her , who has been her healthcare proxy. REVIEW OF SYSTEMS: A 14-point of systems was completed with Ms. Ashby and all those not mentioned above were negative. PHYSICAL EXAM: Vital Signs: Temperature 98.9, pulse rate 87, respiratory rate 16, O2 saturation 95% on 2 L nasal cannula, and blood pressure 135/69. General : Ms. Ashby is lying in the bed, in no acute distress. Neuro: She is alert, she is oriented x3. She moves all extremities equally. There is no facial asymmetry or focal weakness. Extraocular movements are intact. Heart: S1, S2. No murmur, rub, or gallop, and regular. Lungs are clear to auscultation bilaterally with no accessory muscle use and good aeration. Abdomen: Soft, nontender with bowel sounds positive x4. Extremities: No cyanosis or edema. Skin is intact except for the right knee incision, which was not assessed as it is in the immediate postoperative period. DIAGNOSTIC STUDIES/LAB DATA: On 03/12/18 were WBC 4.4, hemoglobin 13.5, hematocrit 39, platelet count 168. Sodium 142, potassium 4.0, chloride 106, serum bicarbonate 30, BUN 12, creatinine 0.54, glucose 95. ASSESSMENT AND PLAN: Ms. Ashby is a 52-year-old female with a past medical history of DVT associated with surgery back in the as well as previous history of diabetes, now resolved after a gastric bypass surgery, who presents to the hospital today for a planned right total knee arthroplasty with Dr. Davis. Our recommendations are as follows: 1. Right total knee arthroplasty postop day number 0: Management will continue to be per orthopedic services. The patient had PT and OT ordered. She has pain medications with a bowel regimen ordered. We will continue to follow along with the H and H through the hospitalization. 2. History of diabetes. The patent states this has resolved after her gastric bypass surgery. We will monitor her glucose periodically as needed. I do not plan to start any insulin at this time. 3. DVT prophylaxis with warfarin and Lovenox per ortho. 4. Code status. Full code. TIME SPENT: Approximately 45 minutes was spent in the admission of this patient , more than half of the time was spent with the patient at the bedside reviewing the events leading up to this hospitalization, performing physical examination, and reviewing my plan of care with the patient. MOHINI QUEZADA, [employer] [id number]/[facility] #: [id number] MICHELA
[2018-03-21] MEDS: ceFAZolin 1 GM in Dextrose (*) 1 GM/50 ML BAG IVPB SCH (15:40)
[2018-03-21] MEDS ORDERED: Warfarin TAB(*) 10 MG PO ONE (17:00)
[2018-03-21] MEDS: Ketorolac INJ* 30 MG/ML 1 ML VIAL IV PUSH PRN ×2 (17:27→23:56)
[2018-03-21] MEDS: Magnesium Hydroxide LIQ* 30 ML UDC PO SCH (21:26)
[2018-03-21] MEDS: Docusate CAP* 100 MG PO SCH (21:26)
[2018-03-22] MEDS: ceFAZolin 1 GM in Dextrose (*) 1 GM/50 ML BAG IVPB SCH ×2 (00:02→07:33)
--- NOTE | 2018-03-22 02:59 | OP ---
DATE OF OPERATION: 03/21/18 - ROOM #341 DATE OF : 65 SURGEON: Pavan Davis MD EQUIPMENT OPERATION INSTRUCTOR: Samreen Harvey RPA ANESTHESIA: Spinal and sedation. PRE-OP DIAGNOSIS: Osteoarthritis, right knee. POST-OP DIAGNOSIS: Osteoarthritis, right knee. OPERATIVE PROCEDURE: Right total knee arthroplasty. ESTIMATED BLOOD LOSS: Less than 50 cc. COMPLICATIONS: None. HARDWARE: Clive Persona #7 femur, E tibia, 10 mm polyethylene spacer, 35 mm all polyethylene patellar button. SUMMARY: Ms. Ashby is a 52-year-old female who has been having more and more troubles with right knee pain. On x-ray, it can be seen she has end-stage changes with significant spurring, sclerosis and is bone and bone in the medial compartment. All three compartments have significant changes and I discussed with her a total knee arthroplasty should work well to decrease her pain and improve her function. Risks of surgery such as infection, scar formation, stiffness, DVT, pulmonary embolism, hardware failure, and continued pain were some of the risks discussed. She had been declared medically optimized and wished to proceed. DESCRIPTION OF PROCEDURE: The patient was brought to the OR and spinal anesthesia was introduced. Lynne catheter was placed. Tourniquet was placed over the proximal right thigh and was used during the case. Total tourniquet time would be 60 minutes. Right knee was prepped and then draped. Samreen Harvey was present throughout the case and provided significant help with positioning, retraction and case could not have been done without an assistant family teacher. Esmarch was used to exsanguinate the leg and the tourniquet was raised. A midline incision was made centered about the patella. It was carried down through the medial side of the tibial tubercle. Incision was carried out through the skin and subcutaneous tissues. Small bleeders encountered were ligated using electrocautery. Extensor mechanism was exposed and a sharp parapatellar arthrotomy was made. Quite a bit of clear yellowish joint fluid was encountered. Fat pad was sharply excised and the soft tissues were sharply elevated from the medial side of the tibia. The patella measured 24 mm in thickness, and a nice 11-mm cut was taken. Patella was then easily subluxated laterally and the knee was flexed up. Step drill was used to open the femoral canal and the intramedullary guide was placed. Guide was adjusted until it was parallel with the epicondyles and this was then pinned into place. The distal femoral cutting guide was then pinned into place and the intramedullary guide was removed. The guide had been set at 2 degrees and 2 mm as I wanted to take almost nothing laterally because of the hypoplasia of the lateral femoral condyle. Looking at the cut, it looked as if most of the cut would be from the medial side and the distal femoral cut was taken. It appeared that it was a decent cut and a rongeur was used to remove some more of the bone spurs laterally. The femur was sized and she sat nicely for a 7. Holes were drilled and a cutting guide was pinned into place. A drill was run through the superior hole and it appeared I would not notch the femur at all. Anterior and posterior femoral cuts followed by the chamfer cuts were all taken. Attention was turned to the tibia. A step drill was used to open the tibial canal and the intramedullary guide was placed. The outrigger was adjusted until it appeared it would take barely a millimeter from the very worn medial side. Cutting guide was then pinned into place and the proximal tibial cut was taken. A spacer was placed and this was loose in flexion as the system has designed an extra 2 mm as the posterior condyles replaced that and she came out nicely until full extension. She had wonderful stability of varus and valgus stress without play and the cuts of the tibia and femur appeared nicely parallel. Guidewire was placed and her alignment appeared to be excellent as well. Proximal tibia was then sized and an E sat very nicely. E was then pinned into place and the proximal tibia was drilled and then punched. Trial femur was placed and the notch guide was finished. A 10 trial spacer was placed and she came out nicely into full extension, flexed to about 110 degrees being limited by her body habitus and not the knee. The patella wanted to flip off about half of the time. The patella was sized and a 35 sat nicely. Holes were drilled and the trial was snapped into place. With the trial on, the patella continuously tracked nicely. Trial instrumentation was removed, the knee was copiously pulse lavaged. Cement was being prepared. Tibia followed by femur and patella were all cemented into place. Excess cement was removed and the cement was allowed to harden. Once the cement hardened, the knee was searched for excess cement and a few small pieces were found. Knee was again copiously pulse lavaged. Local was placed 10 cc at the posterior capsule on the medial side and another 10 cc posterior capsule on the lateral side incision received 20 cc and 5 cc were split into the gutters. With the 10 trial, she again had the same wonderful motion and stability. A 10- polyethylene was then snapped into place. Knee was again copiously pulse lavaged. The arthrotomy was repaired using interrupted #1 Vicryl sutures and the tourniquet was let down. No significant bleeding was encountered. Subcutaneous tissues were reapproximated using 2-0 Vicryl. Skin was closed using susana. Sterile dressing and a Cryo/Cuff were applied in the OR. The patient was then awakened , stable on transfer to the recovery room. [id number]/[facility] #: [id number] MICHELA
[2018-03-22] MEDS: traMADol TAB* 50 MG PO SCH ×4 (05:47→23:14)
[2018-03-22] MEDS: Acetaminophen TAB* 325 MG PO SCH ×3 (05:47→23:13)
[2018-03-22 07:06] LABS: Hematocrit 30 % (35-47); Hemoglobin 10.7 g/dl (12.0-16.0); Mean Platelet Volume 8.7 um3 (7.4-10.4); Platelet Count 181 10^3/ul (150-450)
[2018-03-22 07:16] LABS: INR 1.06 (0.77-1.02)
[2018-03-22 07:20] LABS: EGFR Non-African American 116.1 (>60)
[2018-03-22] MEDS: Ketorolac INJ* 30 MG/ML 1 ML VIAL IV PUSH PRN ×2 (07:33→21:29)
[2018-03-22] MEDS: oxyCODONE TAB* 5 MG TAB PO PRN ×3 (07:33→19:00)
--- NOTE | 2018-03-22 08:41 | PN ---
Progress Note - Progress Note Date of Service: 03/22/18 SOAP: Subjective: patient doing well with minimal complaints of pain Objective: Vital Signs Temp Pulse Resp BP Pulse Ox 98.2 F 71 20 121/60 97 03/22/18 04:01 03/22/18 04:01 03/22/18 07:33 03/22/18 04:01 03/22/18 04:01 Laboratory Last Values Hgb 10.7 g/dl (12.0-16.0) L 03/22/18 06:28 Hct 30 % (35-47) L 03/22/18 06:28 Plt Count 181 10^3/ul (150-450) 03/22/18 06:28 MPV 8.7 um3 (7.4-10.4) 03/22/18 06:28 INR (Anticoag Therapy) 1.06 (0.77-1.02) H 03/22/18 06:28 Sodium 139 mmol/L (135-145) 03/22/18 06:28 Potassium 4.0 mmol/L (3.5-5.0) 03/22/18 06:28 Chloride 105 mmol/L (101-111) 03/22/18 06:28 Carbon Dioxide 28 mmol/L (22-32) 03/22/18 06:28 Anion Gap 6 mmol/L (2-11) 03/22/18 06:28 BUN 8 mg/dL (6-24) 03/22/18 06:28 Creatinine 0.55 mg/dL (0.51-0.95) 03/22/18 06:28 Est GFR ( Amer) 140.4 (>60) 03/22/18 06:28 Est GFR (Non-Af Amer) 116.1 (>60) 03/22/18 06:28 BUN/Creatinine Ratio 14.5 (8-20) 03/22/18 06:28 Glucose 135 mg/dL (70-100) H 03/22/18 06:28 Calcium 8.7 mg/dL (8.6-10.3) 03/22/18 06:28 incision: c/d PE: able to dorsi flex/plantar flex, 2+ DP pulse, intact sensation Assessment: s/p right TKA; POD #1 Plan: 1) PT/OT- WBAT 2) Abx for 24 hours post-op 3) Lovenox/Coumadin/SCD's for DVT prophylaxis
[2018-03-22] MEDS: Docusate CAP* 100 MG PO SCH ×2 (09:13→21:33)
[2018-03-22] MEDS: Magnesium Hydroxide LIQ* 30 ML UDC PO SCH ×2 (09:13→21:34)
[2018-03-22] MEDS: Enoxaparin(*) 40 MG/0.4 ML SYR SUBCUT SCH (11:51)
--- NOTE | 2018-03-22 14:54 | ADMNOTE ---
Subjective Date of Service: 03/22/18 Review of Systems - Measurements Intake and Output: Intake and Output Last 24 Hours 03/20/18 03/21/18 03/22/18 03/23/18 06:59 06:59 06:59 06:59 Intake Total 5079 2116 Output Total 3825 550 Balance 1254 1566 Weight 239 lb Intake: IV Fluids 3046 936 D5W 1/2 NS 846 936 LR 2200 IVPB 50 50 ABX - CEFAZOLIN 50 50 Oral 1983 1130 Output: Urine 50 550 Lynne 3775 Other: # Bowel Movements 0 Objective Active Medications: Acetaminophen (Tylenol Tab*) 975 mg PO Q8HR [facility] Last Admin: 03/22/18 13:57 Dose: 975 mg Cyclobenzaprine HCl (Flexeril Tab*) 10 mg PO TID PRN PRN Reason: SPASMS Diphenhydramine HCl (Benadryl Iv*) 25 mg IV Q6H PRN PRN Reason: itching Diphenhydramine HCl (Benadryl Po*) 25 mg PO Q6H PRN PRN Reason: itching Docusate Sodium (Colace Cap*) 100 mg PO BID [facility] Last Admin: 03/22/18 09:13 Dose: Not Given Enoxaparin Sodium (Lovenox(*)) 40 mg SUBCUT Q24H [facility] Last Admin: 03/22/18 11:51 Dose: 40 mg Dextrose/Sodium Chloride (D5w 1/2 Ns 1000 Ml Bag*) 1,000 mls @ 100 mls/hr IV PER RATE [facility] Last Admin: 03/21/18 12:07 Dose: 100 mls/hr Ketorolac Tromethamine (Toradol Inj*) 30 mg IV PUSH Q6H PRN PRN Reason: PAIN - MODERATE Last Admin: 03/22/18 07:33 Dose: 30 mg Lactulose (Lactulose*) 30 ml PO BID PRN PRN Reason: CONSTIPATION Magnesium Hydroxide (Milk Of Magnesia Liq*) 30 ml PO BID [facility] Last Admin: 03/22/18 09:13 Dose: Not Given Magnesium Hydroxide (Milk Of Magnesia Liq*) 30 ml PO Q6H PRN PRN Reason: constipation Morphine Sulfate (Morphine Vial*) 2 mg IV Q2H PRN PRN Reason: PAIN - BREAKTHROUGH Morphine Sulfate (Morphine Vial*) 4 mg IV Q2H PRN PRN Reason: PAIN - UNRELIEVED Oxycodone HCl (Roxycodone Tab*) 5 mg PO Q4H PRN PRN Reason: PAIN - SEVERE Last Admin: 03/22/18 13:57 Dose: 5 mg Pharmacy Profile Note (Scopolamine Patch Remove*) 1 note PATCH OFF ONCE ONE Stop: 03/24/18 06:01 Pharmacy Profile Note (Coumadin Daily Reminder*) 1 note FOLLOW UP 1700 [facility]IR[facility] Tramadol HCl (Ultram*) 50 mg PO Q6H [facility] Last Admin: 03/22/18 11:51 Dose: 50 mg Warfarin Sodium (Coumadin Tab(*)) 8 mg PO ONCE@1700 ONE; Protocol Stop: 03/22/18 17:01 Vital Signs - 8 hr 03/22/18 03/22/18 03/22/18 07:33 07:40 10:15 Temperature Pulse Rate Respiratory 20 18 16 Rate Blood Pressure (mmHg) O2 Sat by Pulse Oximetry 03/22/18 03/22/18 03/22/18 11:29 11:51 13:42 Temperature 97.6 F Pulse Rate 64 Respiratory 16 20 Rate Blood Pressure 132/59 (mmHg) O2 Sat by Pulse 99 99 Oximetry 03/22/18 13:57 Temperature Pulse Rate Respiratory 18 Rate Blood Pressure (mmHg) O2 Sat by Pulse Oximetry Oxygen Devices in Use Now: None Result Diagrams: 03/22/18 06:28 03/22/18 06:28 Assess/Plan/Problems-Billing Assessment: 52 yo female with a PMH of a tibial osteotomy in 1992 with subsequent DVT, diabetes (resolved after gastric bypass 2015), who underwent an elective right total knee on 03/21 - Patient Problems (1) Status post total right knee replacement Comment: Doing well POD #1 Dispo per surgery PT/OT Bowel regimen (2) Diabetes 1.5, managed as type 2 Comment: - not current, s/p gastric bypass - am fasting blood sugar was 130, but she is noted to be on D5W, plan to stop IVFs since she is tolerating PO. Will add on HbgA1C - last one on file is 2014 = 5.1% (3) Vitamin D deficiency Comment: - noted Vitamin D level 13 in 02/2018 - start supplement - Highly recommended to patient to continue supplemenation at home, with follow up lab in 6 month. (4) DVT prophylaxis Comment: lovenox bridge to couamdin (5) Full code status Status and Disposition: Dispo per Ortho. Will follow up on HbgA1C, but if normal will sign off on patient.
[2018-03-22] MEDS ORDERED: Warfarin TAB(*) 4 MG PO ONE (17:00)
--- NOTE | 2018-03-22 17:02 | PN ---
Subjective Date of Service: 03/22/18 Interval History: Pt reports she is doing well and has been OOB several times today. She reports her pain to be well controlled fluctuating between 1-3. Denies nausea. Reports good appetite. In regards to her diabetes she is currently off all medications and her HgA1C has been below 6 for many years. Last checked was 2014. she also reports recently being started on supplementation vit D from her pcp but hasnt started it but states she plans to do so when she gets home. No other complaints. at bedside. Objective Active Medications: Acetaminophen (Tylenol Tab*) 975 mg PO Q8HR [facility] Last Admin: 03/22/18 13:57 Dose: 975 mg Cholecalciferol (Vitamin D Tab*) 2,000 units PO DAILY [facility] Cyclobenzaprine HCl (Flexeril Tab*) 10 mg PO TID PRN PRN Reason: SPASMS Diphenhydramine HCl (Benadryl Iv*) 25 mg IV Q6H PRN PRN Reason: itching Diphenhydramine HCl (Benadryl Po*) 25 mg PO Q6H PRN PRN Reason: itching Docusate Sodium (Colace Cap*) 100 mg PO BID [facility] Last Admin: 03/22/18 09:13 Dose: Not Given Enoxaparin Sodium (Lovenox(*)) 40 mg SUBCUT Q24H [facility] Last Admin: 03/22/18 11:51 Dose: 40 mg Ketorolac Tromethamine (Toradol Inj*) 30 mg IV PUSH Q6H PRN PRN Reason: PAIN - MODERATE Last Admin: 03/22/18 07:33 Dose: 30 mg Lactulose (Lactulose*) 30 ml PO BID PRN PRN Reason: CONSTIPATION Magnesium Hydroxide (Milk Of Magnesia Liq*) 30 ml PO BID [facility] Last Admin: 03/22/18 09:13 Dose: Not Given Magnesium Hydroxide (Milk Of Magnesia Liq*) 30 ml PO Q6H PRN PRN Reason: constipation Morphine Sulfate (Morphine Vial*) 2 mg IV Q2H PRN PRN Reason: PAIN - BREAKTHROUGH Morphine Sulfate (Morphine Vial*) 4 mg IV Q2H PRN PRN Reason: PAIN - UNRELIEVED Oxycodone HCl (Roxycodone Tab*) 5 mg PO Q4H PRN PRN Reason: PAIN - SEVERE Last Admin: 03/22/18 13:57 Dose: 5 mg Pharmacy Profile Note (Scopolamine Patch Remove*) 1 note PATCH OFF ONCE ONE Stop: 03/24/18 06:01 Pharmacy Profile Note (Coumadin Daily Reminder*) 1 note FOLLOW UP 1700 AMIRAH Tramadol HCl (Ultram*) 50 mg PO Q6H [facility] Last Admin: 03/22/18 11:51 Dose: 50 mg Warfarin Sodium (Coumadin Tab(*)) 8 mg PO ONCE@1700 ONE; Protocol Stop: 03/22/18 17:01 Vital Signs - 8 hr 03/22/18 03/22/18 03/22/18 10:15 11:29 11:51 Temperature 97.6 F Pulse Rate 64 Respiratory 16 16 20 Rate Blood Pressure 132/59 (mmHg) O2 Sat by Pulse 99 Oximetry 03/22/18 03/22/18 13:42 13:57 Temperature Pulse Rate Respiratory 18 Rate Blood Pressure (mmHg) O2 Sat by Pulse 99 Oximetry Oxygen Devices in Use Now: None Appearance: 52 yo female A+O x3 in NAD Eyes: No Scleral Icterus, PERRLA Ears/Nose/Mouth/Throat: NL Teeth, Lips, Gums Neck: NL Appearance and Movements; NL JVP Respiratory: Symmetrical Chest Expansion and Respiratory Effort, Clear to Auscultation Cardiovascular: NL Sounds; No Murmurs; No JVD, RRR, No Edema Abdominal: NL Sounds; No Tenderness; No Distention Extremities: No Edema, No Clubbing, Cyanosis, - - right knee with cryo unit intake Neurological: Alert and Oriented x 3, NL Sensation Lines/Tubes/Other Access: Clean, Dry and Intact Peripheral IV Nutrition: Taking PO's Result Diagrams: 03/22/18 06:28 03/22/18 06:28 Assess/Plan/Problems-Billing Assessment: - Patient Problems (1) Status post total right knee replacement Comment: Doing well POD #1 Dispo per surgery PT/OT Bowel regimen (2) Diabetes 1.5, managed as type 2 Comment: - not current, s/p gastric bypass which resolved her DMII - am fasting blood sugar was 130, but she is noted to be on D5W, plan to stop IVFs since she is tolerating PO. Add on HbgA1C - 5.4% - no further orders. (3) Vitamin D deficiency Comment: - noted Vitamin D level 13 in 02/2018 - start supplement - Highly recommended to patient to continue supplemenation at home, with follow up lab in 6 month. (4) DVT prophylaxis Comment: maurilio gooden to edgar (5) Full code status Status and Disposition: inpatient. Dispo per surgery. Hospital Medicine will sign off for now, Mrs. Finney diabetes is well controlled. Please let us know if we can be of further service.
[2018-03-22] MEDS ORDERED: Acetaminophen TAB* 325 MG ONE (23:20)
[2018-03-23] MEDS: traMADol TAB* 50 MG PO SCH ×2 (05:12→11:24)
[2018-03-23] MEDS: Acetaminophen TAB* 325 MG PO SCH (06:28)
[2018-03-23 08:17] LABS: INR 1.25 (0.77-1.02)
[2018-03-23 08:18] LABS: Hematocrit 30 % (35-47); Hemoglobin 10.3 g/dl (12.0-16.0); Mean Platelet Volume 8.3 um3 (7.4-10.4); Platelet Count 166 10^3/ul (150-450)
[2018-03-23] MEDS: Docusate CAP* 100 MG PO SCH (08:47)
[2018-03-23] MEDS: oxyCODONE TAB* 5 MG TAB PO PRN (08:47)
[2018-03-23] MEDS: Magnesium Hydroxide LIQ* 30 ML UDC PO SCH (08:47)
[2018-03-23] MEDS ORDERED: Cholecalciferol TAB* 1000 UNITS PO SCH (09:00)
--- NOTE | 2018-03-23 10:07 | PN ---
Progress Note - Progress Note Date of Service: 03/23/18 SOAP: Subjective: []Patient seen at beside. She feels well and desires DC home today, pending she does well with physical therapy. Denies CP, SOB, dizziness. Objective: [] Laboratory Last Values Hgb 10.3 g/dl (12.0-16.0) L 03/23/18 07:48 Hct 30 % (35-47) L 03/23/18 07:48 Plt Count 166 10^3/ul (150-450) 03/23/18 07:48 MPV 8.3 um3 (7.4-10.4) 03/23/18 07:48 INR (Anticoag Therapy) 1.25 (0.77-1.02) H 03/23/18 07:48 Sodium 139 mmol/L (135-145) 03/22/18 06:28 Potassium 4.0 mmol/L (3.5-5.0) 03/22/18 06:28 Chloride 105 mmol/L (101-111) 03/22/18 06:28 Carbon Dioxide 28 mmol/L (22-32) 03/22/18 06:28 Anion Gap 6 mmol/L (2-11) 03/22/18 06:28 BUN 8 mg/dL (6-24) 03/22/18 06:28 Creatinine 0.55 mg/dL (0.51-0.95) 03/22/18 06:28 Est GFR ( Amer) 140.4 (>60) 03/22/18 06:28 Est GFR (Non-Af Amer) 116.1 (>60) 03/22/18 06:28 BUN/Creatinine Ratio 14.5 (8-20) 03/22/18 06:28 Glucose 135 mg/dL (70-100) H 03/22/18 06:28 Hemoglobin A1c 5.4 % (4.0-5.6) 03/22/18 06:28 Calcium 8.7 mg/dL (8.6-10.3) 03/22/18 06:28 Vital Signs Temp 97.5 F 03/23/18 07:39 Pulse 72 03/23/18 07:39 Resp 18 03/23/18 08:47 BP 121/59 03/23/18 07:39 Pulse Ox 98 03/23/18 07:55 Intake & Output 03/22/18 03/23/18 03/23/18 18:59 06:59 18:59 Intake Total 2616 940 600 Output Total 775 850 100 Balance 1841 90 500 Intake: IV Fluids 936 D5W 1/2 NS 936 IVPB 50 ABX - CEFAZOLIN 50 Oral 1630 940 600 Output: Urine 775 850 100 Other: # Bowel Movements 0 General: Well appearing, NAD RLE: Dressing changed, incision CDI without surrounding erythema and no discharge. Thigh soft. BL LE: Calves supple and nontender without erythema, edema or palpable cords Assessment: []s/p right TKA; POD #2 Plan: 1) PT/OT- WBAT 2) Abx for 24 hours post-op 3) Lovenox/Coumadin 6 mg 4) DC home if does well with PT
[2018-03-23] MEDS: Enoxaparin(*) 40 MG/0.4 ML SYR SUBCUT SCH (11:25)
[2018-03-23 12:41] VITALS: BP 128/56
[2018-03-23] MEDS ORDERED: Warfarin TAB(*) 6 MG PO SCH (17:00)
[2018-03-24] MEDS ORDERED: Scopolamine PATCH Remove* 1 NOTE MISC PATCH OFF ONE (06:00)
== END 2018-03-23 13:15 | disposition home health service (06) | DRG 302 ==
LOC: AA 05:56 → SSU 11:20
PROVIDERS: ADMIT Orthopaedic Surgery; ATTEND Orthopaedic Surgery
PROC: 0SRC0J9 Replacement of Right Knee Joint with Synthetic Substitute, Cemented, Open Approach (ICD-10-PCS; principal; 2018-03-21 07:30)
DX: M17.11 Unilateral primary osteoarthritis, right knee (principal); Z68.41 Body mass index [BMI] 40.0-44.9, adult; E78.1 Pure hyperglyceridemia; E66.01 Morbid (severe) obesity due to excess calories; G43.909 Migraine, unspecified, not intractable, without status migrainosus; E11.9 Type 2 diabetes mellitus without complications; G47.30 Sleep apnea, unspecified; M76.9 Unspecified enthesopathy, lower limb, excluding foot; E55.9 Vitamin D deficiency, unspecified; Z90.49 Acquired absence of other specified parts of digestive tract; Z98.84 Bariatric surgery status; Z90.710 Acquired absence of both cervix and uterus; Z88.5 Allergy status to narcotic agent; Z80.3 Family history of malignant neoplasm of breast; Z88.8 Allergy status to other drugs, medicaments and biological substances; Z88.6 Allergy status to analgesic agent; Z91.040 Latex allergy status; Z82.49 Family history of ischemic heart disease and other diseases of the circulatory system; Z72.89 Other problems related to lifestyle; Z86.711 Personal history of pulmonary embolism; Z86.718 Personal history of other venous thrombosis and embolism; Q74.2 Other congenital malformations of lower limb(s), including pelvic girdle
CPT/HCPCS: 36415; 80048; 83036; 85014; 85018; 85049; 85610; 88305; 88311; A9270-GY; C1776; G8987-GO-CI; G8988-GO-CI; G8989-GO-CI; J0690; J1100; J1650; J1885; J2001; J2250; J2704; J2795; J3010

== ENCOUNTER → 2018-08-23 08:37 | Day surgery (SDC) | payer BC ==
--- NOTE | 2018-08-10 18:56 | HP ---
AMENDED REPORT NOW INCLUDES COSIGNER DESIGNATION CC: Dr. Couch * PREOPERATIVE HISTORY AND PHYSICAL: DATE OF ADMISSION/SURGERY: 08/23/18 This patient is scheduled for AA admission by Dr. Redd on 08/23/18. DATE OF PREOPERATIVE HISTORY AND PHYSICAL EXAMINATION: 08/10/18. ATTENDING SURGEON: Dr. Alex Redd * (dictated by Amy Reynolds NP). CHIEF COMPLAINT: Colon polyp. HISTORY OF PRESENT ILLNESS: The patient is a 53-year-old female with clinically severe obesity and history of obstructive sleep apnea, not currently treated. Surgical history is significant for open vertical banded gastroplasty in 1992 and then conversion to gastric bypass in [place], [place] in 2014. She recently had a colonoscopy on 07/07/[address] Leyva in order to evaluate for a positive Cologuard. She was found to have a 2.5 cm tubulovillous adenoma at 45 cm that was tattooed. She presented for consultation with Dr. Redd regarding surgical polypectomy/partial colectomy. She denies any abdominal pain , nausea, or vomiting; she reports loose stools since her bariatric surgery; she denies any blood per rectum. There is no known family history of colorectal cancer. Dr. Redd examined the patient and discussed the findings with her. He has recommended laparoscopy, removal of colon polyp or partial colectomy with intraoperative colonoscopy. He described the nature of the surgical procedure, the relevant risks and benefits and today, I reviewed the typical postoperative hospitalization and care. The patient has had a chance to ask questions and stated that she understands the information and is satisfied with the answers given to her questions. She will sign surgical consent on the day of surgery. She will take a bowel cleansing prep on the day before surgery consisting of clear liquids, Colyte laxatives, neomycin, and metronidazole tablets. PAST MEDICAL HISTORY: Significant for morbid obesity; migraine headaches; sleep apnea and she stopped using CPAP since August 2014; osteoarthritis; migraine headaches; pulmonary embolism, 1992. PAST SURGICAL HISTORY: Right total knee replacement, February 2018; right elbow surgery, 2004; right shoulder surgery, 2002; vertical banded gastroplasty and cholecystectomy, 1992; conversion to gastric bypass, 2014; section, 1997; hysterectomy with bilateral salpingo-oophorectomy, 2009. MEDICATIONS: 1. Tylenol 325 mg 2 tablets every 4 hours as needed for pain. 2. Vitamin D3 2000 international units daily. ALLERGIES: DILAUDID, MORPHINE, and DEMEROL have caused diaphoresis; COMPAZINE, PHENERGAN, TIGAN, and REGLAN have caused rash. She is also allergic to LATEX and CERTAIN TAPES and she avoids nonsteroidal anti-inflammatories such as Motrin. FAMILY HISTORY: Father with history of sarcoma. Mother with history of hypertension and diabetes. She states that many relatives on both sides have had cancer, specifically pancreatic, liver, kidney, and ovarian cancer. No history of known colorectal cancer. 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 She is a nonsmoker and occasionally drinks alcohol. REVIEW OF SYSTEMS: Constitutional: No fevers or chills. No excessive fatigue or unintended weight loss. Endocrine: No diabetes or known thyroid disease. Hematologic: No easy bruising or bleeding. No history of blood transfusions. Respiratory: No dyspnea on exertion. No chronic cough. Cardiovascular: No anginal chest pain or palpitations. Gastrointestinal: No nausea, vomiting, diarrhea, GI bleeding, or constipation. No change in bowel habits. Genitourinary: No dysuria. Musculoskeletal: Osteoarthritis. Integumentary: No chronic rashes or skin changes. Neurologic: No headache or blurred vision. No areas of focal weakness or numbness. General: Previous anesthesia caused nausea and vomiting; she has a history of pulmonary embolism in 1992. No history of deep vein thrombosis. She denies any previous blood transfusions or easy bleeding. She denies any history of MRSA or problems with wound healing. PHYSICAL EXAMINATION GENERAL SURVEY: The patient is a 53-year-old obese female, in no acute distress. VITAL SIGNS: Height 64 inches, weight 234 pounds, body mass index 40.2. Blood pressure 132/80, pulse 84 and regular, respiratory rate 18, temperature 98.1. HEENT: Benign. NECK: Supple. No cervical lymphadenopathy. No thyromegaly. LUNGS: Breath sounds bilaterally clear and equal. HEART: Regular rate and rhythm. No murmurs or rubs appreciated. ABDOMEN: Obese. Active bowel sounds. Soft, nondistended. No obvious masses or organomegaly, but exam is limited by body habitus. Well-healed scars in the midline. BACK: No CVA tenderness. PELVIC: Exam deferred. RECTAL: Exam deferred. EXTREMITIES: Warm without edema or skin ulceration. NEUROLOGIC: Alert and oriented x3. Steady gait. SKIN: Warm, dry, intact. IMPRESSION: Polyp of colon, 2.5 cm, tubulovillous adenoma at 45 cm from the anal verge, tattooed at the time of colonoscopy. PLAN: AA admission to Dr. Redd' service on 08/23/18, for laparoscopy, removal of colon polyp or partial colectomy with intraoperative colonoscopy. The patient met Dr. Segovia today. The patient was given written and verbal instructions for bowel cleansing prep consisting of clear liquids, Colyte laxative, neomycin, and Flagyl, all to be taken on the day before surgery. JJ REYNOLDS NP [id number]/[facility] #: [id number] MICHELA
[~2018-08-23 08:37] MED LIST: Buffered Lidocaine 0.9% SYRIN* 5 ML/SYR SYRINGE INTRADERM ONE; Buffered Lidocaine 0.9% SYRIN* 5 ML/SYR SYRINGE ONE; Bupivacaine 0.25% EPI 200,000* 30 ML SDV ONE; Dexamethasone IV* 4 MG/ML 1 ML (4 MG) IV SLOW PU ONE; Dexamethasone IV* 4 MG/ML 1 ML (4 MG) ONE; DiMENhydriNATE IV* 50 MG/ML VIAL IV PUSH PRN; DiMENhydriNATE IV* 50 MG/ML VIAL ONE; Ertapenem* 1 GM in NS 0.9% 50 ML* 50 ML IVPB ONE; Famotidine IV* 10 MG/ML 2 ML (20 mg) IV ONE; Famotidine IV* 10 MG/ML 2 ML (20 mg) ONE; Glycopyrrolate IV* 0.2 MG/ML 1 ML VIAL ONE; Labetalol IV* 5 MG/ML 20 ML VIAL ONE; Lidocaine 2% PF * 5 ML VIAL ONE; Midazolam* 1 MG/ML 2 ML VIAL (2 MG) ONE; Naloxone* 0.4 MG/ML 1 ML VIAL IV PRN; Neostigmine Methylsulfate* 2 MG/2 ML SYRINGE ONE; Ondansetron INJ* 2 MG/ML VIAL ONE; Propofol* 10 MG/ML 20 ML BTL ONE; Rocuronium* 10 MG/ML VIAL ONE; Scopolamine 1.5 mg* PATCH ONE; Scopolamine 1.5 mg* PATCH TRANSDERM ONE; Succinylcholine* 20 MG/ML 10 ML VIAL ONE; fentaNYL* 50 MCG/ML 2 ML VIAL (100 MCG VIAL) IV PRN; fentaNYL* 50 MCG/ML 2 ML VIAL (100 MCG VIAL) ONE
[2018-08-23 14:58] VITALS: BP 121/68
--- NOTE | 2018-08-24 09:57 | OP ---
DATE OF OPERATION: 08/23/18 - [facility] DATE OF : 65 SURGEON: Kentrell Segovia MD ANESTHESIA: General. PRE-OP DIAGNOSIS: Colonic polyp noted at 45 cm on recent diagnostic colonoscopy. POST-OP DIAGNOSES: 1. Colonic polyp noted at 45 cm on recent diagnostic colonoscopy. 2. A 2.5 to 3 cm pediculated polyp noted at 55 cm in the splenic flexure. OPERATIVE PROCEDURE: Colonoscopy to 65 cm with hot snare polypectomy of 2.5 to 3 cm pedunculated polyp at 55 cm. ESTIMATED BLOOD LOSS: Trace. IV FLUIDS: See operative record. SPECIMENS: Colon polyp from splenic flexure, stitch placed at stalk. RECOMMENDATIONS: Await polyp pathology prior to determining next appropriate surveillance interval for colonoscopy and/or surgical resection. BRIEF HISTORY: Ms. Guillermo Ashby is a 53-year-old woman who underwent a diagnostic colonoscopy for a positive Cologuard test in June of this year. She was noted to have a 2.5 to 3 cm pedunculated polyp at 45 cm not amenable to colonoscopic resection. Now, she is undergoing a joint colonoscopic, laparoscopic approach with Dr. Redd for polyp removal or possible colon resection. The colonoscopy procedure was discussed with the patient and the risks of, but not limited to, bleeding, infection, perforation, discomfort, and further surgical intervention depending on pathology results were all explained. DESCRIPTION OF PROCEDURE: The patient had been placed in the supine position with the legs spread and was under general anesthesia for the general surgical proportion of the case, which is noted in the separate operative note by Dr. Redd. The adult Olympus video endoscope was then inserted into the anal canal without difficulties, advanced to about 65 cm. At about 55 to 60 cm, there was noted to be a 2.5 to 3 cm pedunculated wide-based polyp. This appeared to be at about the splenic flexure as noted by the laparoscopic view. Decision was made to proceed with polypectomy and an Endoloop was passed successfully around the polyp down to the base and tightened for hemostasis. We then used a hex snare, 3 cm x 4.5 cm hot snare which we placed over the head of the polyp down on to the stalk about 5 to 6 mm above the Endoloop and divided the polyp stalk with cautery. We then snared the polyp with the snare and withdrew it from the colon and sent the specimen in formalin. The endoscope was then placed back within the colon up to the site. The hemostasis was assured. The Endoloop was in good position. No other abnormalities were noted. I did not attempt to pass the endoscope around to the cecum in light of the recent colonoscopy. As much air was removed from the colon as possible. The endoscope was withdrawn. The patient tolerated this portion of the procedure well. [id number]/[facility] #: [id number] [facility]
--- NOTE | 2018-08-24 20:39 | OP ---
CC: Sage Leyva MD; Arabella Couch MD.* DATE OF OPERATION: 08/23/18 - [facility] DATE OF : 65 SURGEON: Alex Redd MD VENDING SERVICE TECHNICIAN: Dr. Segovia. PRE-OP DIAGNOSIS: Colon polyp. POST-OP DIAGNOSIS: Splenic flexure colon polyp. OPERATIVE PROCEDURE: Laparoscopy with lysis of adhesions. ESTIMATED BLOOD LOSS: Minimal. IV FLUIDS: Crystalloid. SPECIMENS: None. DRAINS: None. COMPLICATIONS: None. COUNTS: The instrument, needle, and sponge counts were correct. DESCRIPTION OF PROCEDURE: The patient was brought to the operating room and placed on the table supine. Sequential compression devices were placed on both lower extremities and general anesthesia was administered. A Lynne catheter was placed. She was positioned on the split leg table. She was appropriately padded and secured. Her abdomen was prepped and draped in the usual sterile fashion. Antibiotics were administered and a time-out was performed. Entry to the abdomen was through a right upper quadrant incision accommodating a 5- mm optical trocar. After accessing the peritoneal cavity, carbon-dioxide was insufflated to a pressure of 15 mmHg. Under direct visualization, additional 5-mm trocars were placed in the infraumbilical midline and in the right lower quadrant. Inspection of the abdominal cavity revealed no obvious tattoos. The inspection proceeded from the rectum following proximally along the sigmoid colon and descending colon. There were adhesions of omentum as well as small bowel to the anterior abdominal wall in the left upper quadrant and in the upper midline and a combination of sharp and blunt dissection as well as LigaSure was used to free the omentum and small bowel. This allowed visualization of the entire descending colon. There were some adhesions of omentum to the epiploic appendages of the distal transverse colon that were divided in order that complete visualization of the distal transverse colon and the majority of the splenic flexure was enabled. Again, there was no evidence of any tattooing noted along the wall of the colon. At this point, Dr. Segovia broke scrub in order to perform the intraoperative colonoscopy in order to identify the colon polyp. Please refer to his note for the details of that procedure. During the intraoperative colonoscopy, I provided manipulation and traction on the transverse colon in order to allow the colonoscopic polypectomy to be performed. After completion of the colonoscopy, the hemostasis in the abdomen was assured. The carbon-dioxide was released and the ports were removed. The incisions were closed with 4-0 Monocryl in a subcuticular fashion and Steri-Strips were applied. The patient tolerated the procedure well. She was extubated and transferred to the recovery room in a stable condition. [id number]/[facility] #: [id number] [facility]
== END | disposition home or self-care (01) ==
LOC: OR 08:37
PROVIDERS: ATTEND Surgery
DX: D12.3 Benign neoplasm of transverse colon (principal); K66.0 Peritoneal adhesions (postprocedural) (postinfection); E66.01 Morbid (severe) obesity due to excess calories; G47.33 Obstructive sleep apnea (adult) (pediatric)
CPT/HCPCS: 88305; A9270-GY; J0330; J1100; J1240; J1335; J2250; J2405; J2704; J3010

== ENCOUNTER 2018-09-14 20:17 | Emergency (ER) | payer BC ==
--- OUTSIDE RECORDS SUMMARY | 2018-09-14 20:23 | XMS REPORT | Continuity of Care Document ---
:1965 External Reference #:[id number] Author Name Stephanie Torre Care Team Providers Name Role Phone Arabella Couch MD Primary Care Physician Unavailable Payers Type Date Identification Numbers Payment Provider Subscriber Policy Number: [id number] [facility] Guillermo Ashby PayID: [id number] [address] [address] [place] [address] Effective: 2017 Policy Number: [id number] [facility] Guillermo Ashby Onset: 2017 Group Name: [facility] [phone] [address] PayID: [place] [address] Advance Directives Description No Information Available Problems Date Description Provider Status Onset: 09/12/2013 Osteoarthritis of knee Angie Hou M.D. Active Onset: 01/22/2015 Morbid obesity Arabella Couch M.D. Active Onset: 01/22/2015 Family history of malignant neoplasm of Arabella Couch M.D. Active breast Note: sister in her 40's Onset: 01/22/2015 Hypertriglyceridemia Arabella Couch M.D. Active Note: mild 188 Onset: 10/15/2017 Localized, primary osteoarthritis Angie Hou M.D. Active Onset: 07/11/2018 Tubulovillous adenoma of rectum Arabella Couch M.D. Active Onset: 01/22/2015 Benign hypertension Arabella Couch M.D. Inactive Inactive: 03/10/2018 Onset: 09/12/2013 Sprain of shoulder and upper Uatsdin Kyree Felix, Resolved arm R.PParisAParis-C Resolved: 01/22/2015 Onset: 01/22/2015 Migraine Arabella Couch M.D. 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 Tobacco Use Start: Unknown Never Smoked Cigarettes Smoking Status Reviewed: 08/29/18 Never Smoked Cigarettes ETOH Use Occasionally consumes alcohol Tobacco Use Start: Unknown Patient has never smoked Recreational Drug Use Denies Drug Use Exercise Type/Frequency Does not exercise Exercise Type/Frequency walking 0.5 mile 3 times a wk started arielle last week Exercise Type/Frequency Exercises regularly Allergies, Adverse Reactions, Alerts Date Description Reaction Status Severity Comments 09/12/2013 Dilaudid Active diaphoretic 09/12/2013 Morphine Active diaphoretic 09/12/2013 Demerol Active diaphoretic 09/12/2013 Compazine Active rash 09/12/2013 Phenergan Active rash 09/12/2013 Tigan Active rash 10/27/2013 Reglan Active unknown 10/27/2013 Latex Active sensitivity 10/27/2013 Tape Active rash/red 01/09/2015 Metformin Active vomit 01/09/2015 Prilosec Active vomit Medications Medication Date Status Form Strength Qnty SIG Indications Ordering Provider Tylenol 00/00/ Active Capsules 325mg 2 tablets Unknown 0000 every 4 hours as needed for pain Vitamin D3 Super 00/00/ Active Capsules 2000Unit 1 by mouth Unknown Strength 0000 every day Neomycin Sulfate 08/10/ Hx Tablets 500mg 6tabs 2 tabs at Amy 2018 1pm and B. 7pm on the [place], day before AQUATICS COORDINATOR surgery and 2 tabs at 7am on the day of surgery Metronidazole /14/ Hx Tablets 500mg 3tabs 1 tablet Amy 2018 by mouth B. at 1pm and [place], 7pm on the AQUATICS COORDINATOR day before surgery and 1 tablet at 7am on the day of surgery Peg 11/14/ Hx Solution 240gm 4000m mix and Amy 3350/Electrolyte 2018 Rec l use as B. s directed [place], on the day AQUATICS COORDINATOR before surgery Amoxicillin 10/10/ Hx Capsules 500mg 4caps 4 caps by Pavan 2017 - mouth 60 Ryan, 11/12/ minutes M.D. 2018 before procedure Percocet 03/23/ Hx Tablets 5-325mg 60tab 1 - 2 tabs 2017 s by mouth Ryan, every 4 - M.D. 6 hours as needed for pain. Warfarin Sodium 03/23/ Hx Tablets 2mg 90tab take 1-5 2017 s tablets as Ryan, directed M.D. daily. Vitamin D 03/16/ Hx Capsules [id number] 8caps once a Arabella (Ergocalciferol) 2017 - week, Khoa, 05/15/ after M.D. 2017 finishing start vit D 2000 Iu a day Voltaren 11/16/ Hx Gel 1% 500un apply 4 M17.11 Pavan 2017 - its grams to Ryan, 03/10/ affected M.D. 2018 area twice a day as needed No Active 10/15/ Hx Unknown Medications 2017 - 2017 Hydrocodone 10/15/ Hx Tablets 5-300mg 60tab 1-2 M25.561 Angie Bitartrate/Aceta 2017 - s tablets Ameya, minophen 03/01/ q12 hours M.D. 2017 by mouth as needed pain Nystatin-Triamci 05/10/ Hx Ointment 323015-9. 1unit apply to 782.1 Eladio meneses 2014 - 1Unit/GM- s affected Jeffrey, BRYCE 09/25/ % areas 2017 twice per day Womens One Daily 03/26/ Hx Tablets 1 by mouth Arabella 2014 - every day Khoa, 09/25/ M.D. 2017 Vitamin B-12 03/26/ Hx Tablets 500mcg every day Arabella Natural 2014 - Khoa, 09/25/ M.D. 2017 Ergocalciferol 02/12/ Hx Capsules [id number] 8caps 1 tab by Arabella 2014 - mouth Khoa, 11/03/ every week M.D. 2016 Glipizide 12/26/ Hx Tablets 10mg 90tab take one Arabella 2014 - s tablet by Khoa, 03/26/ mouth M.D. 2014 every morning Metoprolol 12/26/ Hx Tablets ER 25mg 90tab 1 by mouth 401.9 Arabella Succinate ER 2015 - 24HR s once a day Khoa, 03/26/ M.D. 2014 Tizanidine HCL 01/22/ Hx Tablets 4mg 30tab 1 tab po q Angie 2013 - s 8 hrs prn Ameya, 12/26/ spasm M.D. 2014 Lorazepam 10/27/ Hx Tablets 1mg 2tabs take 1 Angie2013 - tablet by Ameya, 12/26/ mouth 1 M.D. 2015 hour before exam, may repeat if necessary after 1 hour Naproxen 09/01/ Hx Tablets 500mg 40tab 1 tablet Ernst 2012 with food Amaury, 12/26/ po bid M.D. 2014 Percocet 11/02/ Hx Tablets 5-325mg 60tab 1-2 tabs Angie 2012 po q4-6 Ameya, 05/03/ prn pain M.D. 2013 Ibuprofen 11/02/ Hx Tablets 800mg 60tab Take One Pavan 2012 Tablet By Ryan 12/26/ Mouth M.D. 2014 Twice A Day For Pain Lisinopril/[place] / Hx Unknown chlorothiazide 0000 - 2014 Escitalopram / Hx Unknown Oxalate 0000 - 2014 Tizanidine HCL / Hx Unknown 0000 - 2013 Lisinopril-[place] / Hx Tablets 20-12.5mg 1 by mouth Unknown chlorothiazide 0000 - every day 2014 Januvia / Hx Tablets 100mg 30tab 1 by mouth Arabella 0000 - s every day Khoa, 03/26/ M.D. 2014 Glipizide ER / Hx Tablets ER 5mg 1 by mouth Unknown 0000 - 24HR every day 2014 Butalbital/Aceta / Hx Tablets 50-500-40 take 1 Unknown minophen/Caffein 0000 - mg tablet e 01/08/ four times 2014 a day as needed Lisinopril / Hx Tablets 20mg 1 by mouth Unknown 0000 - every day 2016 Famotidine / Hx Tablets 20mg take one Unknown 0000 - tablet by 05/10/ mouth 2014 twice a day Ferrousul / Hx Tablets 325(65Fe) 1 tab tid Unknown 0000 - mg 2016 Hydrocodone-Acet / Hx Tablets 5-325mg 1-2 by Unknown aminophen 0000 - mouth 09/25/ every 6 2017 hours as needed Carisoprodol / Hx Tablets 350mg Take 3 Unknown 0000 - times 09/25/ daily as 2017 needed. Vitamin D3 / Hx Capsules 5000Unit once a day Unknown Maximum Strength - 2016 Cytotec / Hx Tablets 100mcg 1 po Q 6 h Unknown 2016 Pepcid / Hx Tablets 40mg 1 tab bid Unknown - 2016 Medications Administered in Office Medication Date Status Form Strength Qnty SIG Indications Ordering Provider Depomedrol Administered Injection Angie 40MG 018 Sanjuanita Hou Depomedrol Administered Injection Angie 80MG 013 Sanjuanita Hou Immunizations CPT Code Status Date Vaccine Lot # [id number] Given 03/10/2018 Tdap - Tetanus/Diptheria/Acellular Pertussis [id number] Refused 08/08/2018 Influenza Virus Vaccine, Quadrivalent, Split, Preservative Free Vital Signs Date Vital Result Comment 08/29/2018 1:27pm Heart Rate 78 /min Respiratory Rate 16 /min Body Temperature 98.3 F 08/10/2018 12:47pm Height 64 inches 5'4" Weight 234.00 lb Heart Rate 84 /min BP Systolic Sitting 132 mmHg BP Diastolic Sitting 80 mmHg Respiratory Rate 18 /min Body Temperature 98.1 F BMI (Body Mass Index) 40.2 kg/m2 08/08/2018 11:01am Height 64 inches 5'4" Weight 234.00 lb Heart Rate 78 /min BP Systolic Sitting 120 mmHg BP Diastolic Sitting 80 mmHg O2 % BldC Oximetry 97 % BMI (Body Mass Index) 40.2 kg/m2 07/20/2018 3:40pm Heart Rate 72 /min BP Systolic 130 mmHg BP Diastolic 82 mmHg Respiratory Rate 16 /min Pain Level 0 07/14/2018 9:59am Height 64 inches 5'4" Weight 235.00 lb Heart Rate 72 /min BP Systolic 142 mmHg BP Diastolic 90 mmHg Respiratory Rate 16 /min Body Temperature 97.7 F BMI (Body Mass Index) 40.3 kg/m2 04/20/2018 1:10pm Height 64 inches 5'4" Weight 238.00 lb Heart Rate 92 /min Respiratory Rate 14 /min Body Temperature 99.1 F Pain Level 6 BMI (Body Mass Index) 40.8 kg/m2 03/10/2018 9:08am Height 64 inches 5'4" Weight 238.00 lb Heart Rate 77 /min BP Systolic Sitting 136 mmHg BP Diastolic Sitting 70 mmHg O2 % BldC Oximetry 97 % BMI (Body Mass Index) 40.8 kg/m2 03/02/2018 9:31am Height 64 inches 5'4" Weight 243.50 lb Heart Rate 64 /min BP Systolic 138 mmHg BP Diastolic 84 mmHg Respiratory Rate 16 /min Body Temperature 97.4 F Pain Level 5 constant BMI (Body Mass Index) 41.8 kg/m2 12/21/2017 11:01am Height 64 inches 5'4" Weight 207.00 lb Heart Rate 76 /min BP Systolic Recheck 128 mmHg BP Diastolic Recheck 84 mmHg Respiratory Rate 16 /min Body Temperature 97.9 F Pain Level 4 BMI (Body Mass Index) 35.5 kg/m2 11/16/2017 10:09am Height 64 inches 5'4" Weight 232.00 lb Heart Rate 76 /min BP Systolic Recheck 136 mmHg BP Diastolic Recheck 84 mmHg Respiratory Rate 16 /min Body Temperature 98.3 F BMI (Body Mass Index) 39.8 kg/m2 10/29/2017 3:26pm Height 64.5 inches 5'4.50" Heart Rate 16 /min BP Systolic 136 mmHg BP Diastolic 80 mmHg Respiratory Rate 16 /min Body Temperature 98.5 F Pain Level 7 10/15/2017 1:26pm Height 64.5 inches 5'4.50" Weight 230.00 lb per pt Heart Rate 84 /min reg BP Systolic Sitting 150 mmHg Lue BP Diastolic Sitting 94 mmHg Lue Respiratory Rate 16 /min Pain Level 5 right knee BMI (Body Mass Index) 38.9 kg/m2 05/10/2015 9:53am Height 63.75 inches 5'3.75" Weight 233.00 lb Heart Rate 76 /min BP Systolic Sitting 128 mmHg BP Diastolic Sitting 80 mmHg Body Temperature 98.0 F O2 % BldC Oximetry 97 % BMI (Body Mass Index) 40.3 kg/m2 03/26/2015 2:47pm Weight 253.00 lb Heart Rate 72 /min BP Systolic Sitting 143 mmHg BP Diastolic Sitting 72 mmHg Body Temperature 97.8 F 01/22/2015 2:23pm Height 64 inches 5'4" Weight 282.00 lb Heart Rate 97 /min BP Systolic Sitting 110 mmHg BP Diastolic Sitting 64 mmHg Body Temperature 98.2 F O2 % BldC Oximetry 98 % BMI (Body Mass Index) 48.4 kg/m2 01/09/2015 11:09am Height 64 inches 5'4" Weight 276.50 lb Heart Rate 77 /min BP Systolic Sitting 130 mmHg BP Diastolic Sitting 80 mmHg O2 % BldC Oximetry 97 % BMI (Body Mass Index) 47.5 kg/m2 Neck Circumference in inches 16.5 12/26/2014 2:46pm Height 64 inches 5'4" Weight 280.25 lb Heart Rate 101 /min BP Systolic Sitting 128 mmHg BP Diastolic Sitting 88 mmHg Body Temperature 98.4 F O2 % BldC Oximetry 98 % BMI (Body Mass Index) 48.1 kg/m2 05/04/2014 11:12am Height 64 inches 5'4" Heart Rate 88 /min BP Systolic 156 mmHg BP Diastolic 97 mmHg 03/12/2014 2:24pm Height 64 inches 5'4" Weight 275.00 lb Heart Rate 53 /min BP Systolic 150 mmHg BP Diastolic 86 mmHg BMI (Body Mass Index) 47.2 kg/m2 12/11/2013 1:07pm Height 64 inches 5'4" Heart Rate 102 /min BP Systolic 142 mmHg BP Diastolic 92 mmHg 11/27/2013 3:08pm Height 64 inches 5'4" Weight 270.00 lb Heart Rate 88 /min BMI (Body Mass Index) 46.3 kg/m2 10/27/2013 11:21am Height 65 inches 5'5" Weight 276.00 lb Heart Rate 87 /min BP Systolic 146 mmHg BP Diastolic 92 mmHg BMI (Body Mass Index) 45.9 kg/m2 09/01/2013 10:14am Height 65 inches 5'5" Weight 278.00 lb Heart Rate 90 /min BP Systolic 135 mmHg BP Diastolic 80 mmHg BMI (Body Mass Index) 46.3 kg/m2 Results Test Date Facility Test Result H/L Range Note Laboratory test 08/23/2018 [facility] Surgical SEE RESULT [address] [place] [address] [phone] CBC Auto Diff 08/10/2018 [facility] White Blood 7.2 10^3/uL N 3.5-10.[address] [place] [address] [phone] Red Blood Count 4.13 10^6/uL N 4.00-5.40 Hemoglobin 12.6 g/dL N 12.0-16.0 Hematocrit 37 % N 35-47 Mean Corpuscular Volume 90 fL N 80-97 Mean Corpuscular Hemoglobin 31 pg N 27-31 Mean Corpuscular HGB Conc 34 g/dL N 31-36 Red Cell Distribution Width 14 % N 10.5-15 Platelet Count 210 10^3/uL N 150-450 Mean Platelet Volume 8.6 fL N 7.4-10.4 Abs Neutrophils 4.9 10^3/uL N 1.5-7.7 Abs Lymphocytes 1.6 10^3/uL N 1.0-4.8 Abs Monocytes 0.6 10^3/uL N 0-0.8 Abs Eosinophils 0.1 10^3/uL N 0-0.6 Abs Basophils 0.1 10^3/uL N 0-0.2 Abs Nucleated RBC 0 10^3/uL Granulocyte % 68.0 % N 38-83 Lymphocyte % 22.2 % Low 25-47 Monocyte % 7.8 % High 0-7 Eosinophil % 1.3 % N 0-6 Basophil % 0.7 % N 0-2 Nucleated Red Blood Cells % 0 Basic Metabolic Panel 08/10/2018 [facility] Sodium 141 mmol/L N 135-[address] [place], [place] [id number] [phone] Potassium 4.0 mmol/L N 3.5-5.0 Chloride 107 mmol/L N 101-111 Co2 Carbon Dioxide 29 mmol/L N 22-32 Anion Gap 5 mmol/L N 2-11 Glucose 121 mg/dL High 70-100 Blood Urea Nitrogen 12 mg/dL N 6-24 Creatinine 0.62 mg/dL N 0.51-0.95 BUN/Creatinine Ratio 19.4 N 8-20 Calcium 9.6 mg/dL N 8.6-10.3 Egfr Non- 100.7 >60 Egfr 121.8 >60 2 Laboratory test 2018 [facility] Surgical SEE RESULT 3 , [address] [place] [address] Order [phone] Inr/Protime 04/14/2018 [facility] Inr 1.52 High 0.77- [address] [place] [address] [phone] Inr/Protime 04/11/2018 [facility] Inr 1.36 High 0.77- [address] [place] [address] [phone] Inr/Protime 04/07/2018 [facility] Inr 1.21 High 0.77- [address] [place] [address] [phone] Inr/Protime 04/04/2018 [facility] Inr 2.56 High 0.77- [address] [place] [address] [phone] Inr/Protime 03/31/2018 [facility] Inr 1.38 High 0.77- [address] [place] [address] [phone] Inr/Protime 03/28/2018 [facility] Inr 1.39 High 0.77- [address] [place] [address] [phone] Laboratory test 03/12/2018 [facility] Ferritin 43.4 ng/mL N 11 -[address] 7 [place] [address] [phone] Laboratory test 03/12/2018 [facility] Vitamin D 13.2 ng/mL Low 20-[address] Total 25(Oh) [place] [address] [phone] Vitamin B12 203 pg/mL N 180-914 9 Lipid Profile 03/12/2018 [facility] Triglycerides 152 mg/dL 10 (Trig/Chol/HDL) [address] [place] [address] [phone] Cholesterol 159 mg/dL 11 HDL Cholesterol 49.8 mg/dL 12 LDL Cholesterol 79 mg/dL 13 Comp Metabolic Panel 03/12/2018 [facility] Sodium 142 mmol/L N 135-[address] [place] [address] [phone] Potassium 4.0 mmol/L N 3.5-5.0 Chloride 106 mmol/L N 101-111 Co2 Carbon Dioxide 30 mmol/L N 22-32 Anion Gap 6 mmol/L N 2-11 Glucose 95 mg/dL N 70-100 Blood Urea Nitrogen 12 mg/dL N 6-24 Creatinine 0.54 mg/dL N 0.51-0.95 BUN/Creatinine Ratio 22.2 High 8-20 Calcium 9.3 mg/dL N 8.6-10.3 Total Protein 6.3 g/dL Low 6.4-8.9 Albumin 4.1 g/dL N 3.2-5.2 Globulin 2.2 g/dL N 2-4 Albumin/Globulin Ratio 1.9 N 1-3 Total Bilirubin 0.60 mg/dL N 0.2-1.0 Alkaline Phosphatase 107 U/L High 34-104 Alt 12 U/L N 7-52 Ast 13 U/L N 13-39 Egfr Non- 118.6 >60 Egfr 152.5 >60 14 Urinalysis Profile 03/12/2018 [facility] Urine Color Yellow [address] [place] [address] [phone] Urine Appearance Turbid Urine Specific Lorraine 1.020 N 1.010-1.030 Urine pH 5.0 N 5-9 Urine Urobilinogen Negative Negative Urine Ketones Negative Negative Urine Protein Negative Negative Urine Leukocytes Negative Negative Urine Blood Negative Negative Urine Nitrite Negative Negative Urine Bilirubin Negative Negative Urine Glucose Negative Negative CBC Auto Diff 03/12/2018 [facility] White Blood 4.4 10^3/uL N 3.5-10.[address] [place] [address] [phone] Red Blood Count 4.32 10^6/uL N 4.00-5.40 Hemoglobin 13.5 g/dL N 12.0-16.0 Hematocrit 39 % N 35-47 Mean Corpuscular Volume 91 fL N 80-97 Mean Corpuscular Hemoglobin 31 pg N 27-31 Mean Corpuscular HGB Conc 35 g/dL N 31-36 Red Cell Distribution Width 13 % N 10.5-15 Platelet Count 168 10^3/uL N 150-450 Mean Platelet Volume 8.8 um3 N 7.4-10.4 Abs Neutrophils 2.8 10^3/uL N 1.5-7.7 Abs Lymphocytes 1.1 10^3/uL N 1.0-4.8 Abs Monocytes 0.4 10^3/uL N 0-0.8 Abs Eosinophils 0.1 10^3/uL N 0-0.6 Abs Basophils 0 10^3/uL N 0-0.2 Abs Nucleated RBC 0 10^3/uL Granulocyte % 63.6 % N 38-83 Lymphocyte % 25.0 % N 25-47 Monocyte % 9.1 % High 0-7 Eosinophil % 1.4 % N 0-6 Basophil % 0.9 % N 0-2 Nucleated Red Blood Cells % 0.2 Inr/Protime 03/12/2018 [facility] Inr 0.88 N 0.77-1.[address] [place] [address] [phone] Laboratory test 03/12/2018 [facility] Partial 28.2 seconds N 26.0-36.[address] [place] [address] PTT [phone] Type & Screen 03/12/2018 [facility] Patient A Positive [address] [place] [address] [phone] Antibody Screen NEGATIVE Urine Culture And 03/12/2018 [facility] Urine Culture SEE RESULT [address] [place] [address] [phone] Urinalysis Profile 12/04/2016 [facility] Urine Color Yellow N [address] [place] [address] [phone] Urine Appearance Cloudy N Urine Specific Lorraine 1.012 N 1.010-1.030 Urine pH 5.0 N 5-9 Urine Urobilinogen Negative N Negative Urine Ketones Negative N Negative Urine Protein Negative N Negative Urine Leukocytes Negative N Negative Urine Blood 2+ Abnormal Negative Urine Nitrite Negative N Negative Urine Bilirubin Negative N Negative Urine Glucose Negative N Negative Urine White Blood Cell Absent N Absent Urine Red Blood Cell 2+(6-10/hpf) Abnormal Absent Urine Bacteria Absent N Absent Urine Squamous Epithelial Cell Present Abnormal Absent Urine Calcium Oxalate Cryst Present Abnormal Absent Urine Culture And 12/04/2016 [facility] Urine Culture SEE RESULT [address] [place] [address] [phone] Rapid Influenza A 10/22/2016 [facility] Influenza A NEGATIVE N Negative 17 & B Molecular [address] [place] [address] [phone] Influenza B Molecular NEGATIVE N Negative Laboratory test 03/26/2015 [facility] Hemoglobin A1c 5.4 5-7 finding Laboratory test 03/22/2015 [facility] Vitamin D Total 18.1 ng/ mL Low 30-[address] 25(Oh) [place] [address] [phone] Laboratory test 02/07/2015 Vitamin D Total 10.2 ng/mL Low 30-50 finding 25(Oh) Comp Metabolic 02/07/2015 Sodium 136 mmol/L N 133-145 Panel Potassium 3.6 mmol/L N 3.5-5.0 Chloride 102 mmol/L N 101-111 Co2 Carbon Dioxide 28 mmol/L N 22-32 Anion Gap 6 mmol/L N 2-11 Glucose 113 mg/dL High 70-100 Blood Urea Nitrogen 10 mg/dL N 6-24 Creatinine 0.82 mg/dL N 0.51-0.95 BUN/Creatinine Ratio 12.2 N 8-20 Calcium 9.1 mg/dL N 8.6-10.3 Total Protein 6.6 g/dL N 6.4-8.9 Albumin 3.9 g/dL N 3.2-5.2 Globulin 2.7 g/dL N 2-4 Albumin/Globulin Ratio 1.4 N 1-3 Total Bilirubin 0.60 mg/dL N 0.2-1.0 Alkaline Phosphatase 72 U/L N 34-104 Alt 20 U/L N 7-52 Ast 17 U/L N 13-39 Egfr Non- 74.1 N >60 Egfr 95.3 N >60 18 CBC Auto Diff 02/07/2015 White Blood Count 6.4 10^3/uL N 4.8-10.8 Red Blood Count 3.80 10^6/uL Low 4.0-5.4 Hemoglobin 11.9 g/dL Low 12.0-16.0 Hematocrit 34 % Low 35-47 Mean Corpuscular Volume 91 fL N 80-97 Mean Corpuscular Hemoglobin 31 pg N 27-31 Mean Corpuscular HGB Conc 35 g/dL N 31-36 Red Cell Distribution Width 14 % N 10.5-15 Platelet Count 192 10^3/uL N 150-450 Mean Platelet Volume 9 um3 N 7.4-10.4 Abs Neutrophils 4.5 10^3/uL N 1.5-7.7 Abs Lymphocytes 1.3 10^3/uL N 1.0-4.8 Abs Monocytes 0.4 10^3/uL N 0-0.8 Abs Eosinophils 0.1 10^3/uL N 0-0.6 Abs Basophils 0 10^3/uL N 0-0.2 Abs Nucleated RBC 0 10^3/uL N Granulocyte % 71.5 % N 38-83 Lymphocyte % 20.4 % Low 25-47 Monocyte % 6.6 % N 1-9 Eosinophil % 0.8 % N 0-6 Basophil % 0.7 % N 0-2 Nucleated Red Blood Cells % 0 N Laboratory test finding 12/26/2014 [facility] Hemoglobin A1c 8.2 High 5 -7 1 SEE RESULT BELOW Name: GUILLERMO ASHBY : [address]: Alex Redd MD Acct: [id number] Unit: [id number] AGE: 53 Location: OR Re08/23/18 SEX: F Status: [place] [facility] [place]: [id number] GUNNER: 08/23/18- [facility] DR: Alex Redd MD REQ: [id number] RECD: [id number] STATUS: ZACHARIAH SCHAEFER DR: Kentrell Segovia MD _ ORDERED: LEVEL 4 FINAL DIAGNOSIS Colon, splenic flexure, biopsy: -- Tubulovillous adenoma. -- No high grade dysplasia or malignancy. -- Inked resection stalk margin negative for adenomatous change. CLINICAL HISTORY Polyp noted at 45 cm on recent colonoscopy 07/07/18. PRE-OPERATIVE DIAGNOSIS Suture torres stalk POST-OPERATIVE DIAGNOSIS Colonoscopy: 2.5 to 3.0 cm pedunculated polyp at 55 cm - splenic flexure - snare hot polypectomy removal GROSS DESCRIPTION The specimen is received in formalin labeled, Splenic Flexure Colon Polyp, Suture Torres Stalk, and consists of a 2.3 x 2.2 x 1.9 cm spaulding-red lobulated polypoid soft tissue fragment with an attached suture which torres the stalk. Received separately in the same container is a 0.8 x 0.7 x 0.2 cm aggregate of spaulding-red irregular soft tissue fragments. The specimen is inked, serially sectioned and entirely submitted in cassettes A through D include separately received tissue in cassette D. Signed by and Reported on: Janeth Gurrola MD 08/24/18 1127 END OF REPORT DEPARTMENT OF PATHOLOGY, [address] [place] [address] Judah Pisano M.D. Director [facility] # [id number] 2 Because ethnic data is not always readily available, this report includes an eGFR for both -Americans and non- Americans. The National Kidney Disease Education Program (NKDEP) does not endorse the use of the MDRD equation for patients that are not between the ages of 18 and 70, are , have extremes of body size, muscle mass, or nutritional status, or are non- or non-. According to the National Kidney Foundation, irrespective of diagnosis, the stage of the disease is based on the level of kidney function: Stage Description GFR(mL/min/1.73 m(2)) 1 Kidney damage with normal or decreased GFR 90 2 Kidney damage with mild decrease in GFR 60-89 3 Moderate decrease in GFR 30-59 4 Severe decrease in GFR 15-29 5 Kidney failure <15 (or dialysis) 3 [id number] 4 SEE RESULT BELOW Name: GUILLERMO ASHBY : [address]: Sage Leyva MD Acct: [id number] Unit: [id number] AGE: 53 Location: [facility] Re07/07/18 SEX: F Status: DEP REF SPEC: [id number] GUNNER: 07/07/181208 [facility] DR: Sage Leyva MD REQ: [id number] RECD: [id number] STATUS: ZACHARIAH SCHAEFER DR: Arabella Couch MD _ ORDERED: LEVEL 4/2 COMMENTS: [id number] FINAL DIAGNOSIS 1. Colon, cecum, biopsy: -- Hyperplastic polyp. 2. Colon, at 45 cm, biopsy: -- Tubulovillous adenoma. -- No high grade dysplasia or malignancy. POST-OPERATIVE DIAGNOSIS Colonoscopy: to terminal ileum; nodule - biopsy; at 45 cm large polyp, biopsy and tattoo GROSS DESCRIPTION 1. The specimen is received in formalin labeled, Biopsy Cecal Nodule, and consists of a 0.4 x 0.3 x 0.1 cm spaulding-pink irregular soft tissue fragment which is submitted entirely in one cassette. 2. The specimen is received in formalin labeled, Biopsy Colon Polyp at 45 cm, and consists of a 0.5 x 0.3 x 0.2 cm aggregate of spaulding-pink irregular to polypoid soft tissue fragments which is submitted entirely in one cassette. Signed by and Reported on: Janeth Gurrola MD 07/08/18 1334 END OF REPORT DEPARTMENT OF PATHOLOGY, [address] [place] [address] Judah Pisano M.D. Director [facility] # [id number] [address] DAVIS AT [phone] CALL DOCTOR AT [phone] DAVIS AT [phone] CALL RESULTS TO [phone] Normal Range 180 to 914 Indeterminate Range 145 to 180 Deficient Range <145 10 Desirable: <150 Borderline High: 150-199 High: 200-499 Very High: >500 11 Desirable: <200 Borderline High: 200-239 High: >239 12 Low: <40 Desirable: 40-60 High: >60 13 Desirable: <100 Near Optimal: 100-129 Borderline High: 130-159 High: 160-189 Very High: >189 14 Because ethnic data is not always readily available, this report includes an eGFR for both -Americans and non- Americans. The National Kidney Disease Education Program (NKDEP) does not endorse the use of the MDRD equation for patients that are not between the ages of 18 and 70, are , have extremes of body size, muscle mass, or nutritional status, or are non- or non-. According to the National Kidney Foundation, irrespective of diagnosis, the stage of the disease is based on the level of kidney function: Stage Description GFR(mL/min/1.73 m(2)) 1 Kidney damage with normal or decreased GFR 90 2 Kidney damage with mild decrease in GFR 60-89 3 Moderate decrease in GFR 30-59 4 Severe decrease in GFR 15-29 5 Kidney failure <15 (or dialysis) 15 SEE RESULT BELOW Name: TREVORVANESSAZAYDA Knowles : [address]: Viri ZULUAGA Acct: [id number] Unit: [id number] AGE: 52 Location: [facility] Re03/12/18 SEX: F Status: REG REF SPEC: [id number] GUNNER: 03/12/18-0846 [facility] DR: Viri ZULUAGA REQ: [id number] RECD: 03/12/18 STATUS: COMP [facility] DR: Arabella Couch MD _ SOURCE: URINE SPDESC: ORDERED: Urine Culture QUERIES: Urine Source: Clean Catch Procedure Result Reported Site Urine Culture Final 03/13/18- 1341 ML No Growth (<1,000 CFU/mL) * ML - Main Lab . END OF REPORT DEPARTMENT OF PATHOLOGY, [address] [place] [address] Judah Pisano M.D. Director [place] # [id number] 16 SEE RESULT BELOW Name: GUILLERMO ASHBY : [address]: Aurea Tee Acct: [id number] Unit: [id number] AGE: 51 Location: [facility] Re12/04/16 SEX: F Status: DEP ER SPEC: [id number] GUNNER: 12/04/16-[address]: Aurea Morales DO REQ: [id number] RECD: 12/05/16 STATUS: KAYKAY SCHAEFER DR: Arabella Couch MD _ SOURCE: URINE SPDESC: ORDERED: Urine Culture Procedure Result Reported Site Urine Culture Final 12/06/16- 1232 ML No Growth (<1,000 CFU/mL) * ML - MAIN LAB (PSC1) . END OF REPORT * ML=Testing performed at Main Lab DEPARTMENT OF PATHOLOGY, [address] [place] [address] Judah Pisano M.D. Director [facility] # [id number] 17 Printer Slotter Operator: [id number] KAROLINE LOPEZ 18 Because ethnic data is not always readily available, this report includes an eGFR for both -Americans and non- Americans. The National Kidney Disease Education Program (NKDEP) does not endorse the use of the MDRD equation for patients that are not between the ages of 18 and 70, are , have extremes of body size, muscle mass, or nutritional status, or are non- or non-. According to the National Kidney Foundation, irrespective of diagnosis, the stage of the disease is based on the level of kidney function: Stage Description GFR(mL/min/1.73 m(2)) 1 Kidney damage with normal or decreased GFR 90 2 Kidney damage with mild decrease in GFR 60-89 3 Moderate decrease in GFR 30-59 4 Severe decrease in GFR 15-29 5 Kidney failure <15 (or dialysis) Procedures Date Code Description Status 08/08/2018 82192 EKG Tracing & Interpretation Completed 2018 [id number] Colonoscopy Completed 04/20/2018 69850070 Mammogram Completed 03/21/2018 01486 TKR Total Knee Replacement Completed 03/21/2018 34592 TKR Total Knee Replacement Completed 03/21/2018 06056 TKR Total Knee Replacement Completed 03/21/2018 50613 TKR Total Knee Replacement Completed 03/02/2018 27753 EKG, Interpretation Only Completed 10/15/201785796 Inject/Drain Joint/Bursa Major W/O US Completed 01/22/2015 86449 EKG Tracing & Interpretation Completed 10/27/2013 59319 Rad Shoulder Comp, Min. 2 Views Completed 09/15/2013 Inject/Drain Joint/Bursa Major W/O US Completed 09/15/201316858 Inject/Drain Joint/Bursa Major W/O US Completed 09/01/2013 51085 Rad Exam; Knee, Ap&L Completed 09/01/2013 53361 Rad Shoulder Comp, Min. 2 Views Completed 09/01/2011 38017 Color Flow Doppler/Interp & Reprt Completed 09/01/2011 24450 Pulse Wave/Continuous-Interp.RPT Completed 09/01/2011 09807 ECHO Transthorasic Realtime 2D W Doppler & Color Flow Completed Hosp Encounters Type Date Location Provider Dx Diagnosis Office Visit 08/08/2018 [facility] Arabella Couch, Z01.818 Encounter for other 11:10a Alhaji Torres M.D. preprocedural [place] examination K63.5 Polyp of colon Z98.84 Bariatric surgery status E66.9 Obesity, unspecified Office Visit 07/20/2018 3:45p [facility] Pavan Davis, Z47.1 [facility] [place] following joint C.M.A. replacement surgery Z96.651 Presence of right artificial knee joint Office Visit 07/14/2018 10:00a [facility] Alex Redd, K63.5 Polyp of Of Cassidy AYALA, FACS colon Office Visit 03/22/2018 9:08a [facility] Aileen Napoles, M79.604 Pain in Assoc,pc AQUATICS COORDINATOR right leg Hospitalists M17.11 Unilateral primary osteoarthritis, right knee Office Visit 03/21/2018 [facility] Mohini Quezada, M25.561 Pain in right knee 9:07a Assoc,pc N.P. Hospitalists Office Visit 03/10/2018 [facility] Jay Bell Z01.818 Encounter for 9:10a Alhaji Couch M.D. other [place] preprocedural examination M17.11 Unilateral primary osteoarthritis, right knee E78.1 Pure hyperglyceridemia E66.9 Obesity, unspecified Z98.84 Bariatric surgery status Z12.31 Encntr screen mammogram for malignant neoplasm of breast Z23 Encounter for immunization Office Visit 12/21/2017 Soha Browne M17.11 Unilateral primary 11:00a [facility] Davis M.D. osteoarthritis, AT [place] right knee Office Visit 11/16/2017 Orthopedic Pavan M17.11 Unilateral primary 10:00a [facility] Davis M.D. osteoarthritis, AT [place] right knee Office Visit 10/29/2017 Orthopedic Angie Hou, M17.11 Unilateral primary 3:30p [facility] [place] osteoarthritis, C.M.A. right knee M25.561 Pain in right knee M25.461 Effusion, right knee Office Visit 10/15/2017 1:30p [facility] Services Angie Hou, M25.561 Pain in right Of C.M.A. Khadra.D. knee M25.461 Effusion, right knee M17.11 Unilateral primary osteoarthritis, right knee M25.561 Pain in right knee Office Visit 05/10/2015 10:00a [facility] Eladio Hesshn, 401.1 Hypertension Benign Medicine - AQUATICS COORDINATOR [place] 782.1 Rash & Other Nonspec Skin Eruption 796.2 Blood Pressure Reading Elevated W/O Hypertension Office Visit 03/26/2015 2:50p [facility] Arabella 401.1 Hypertension Benign Alhaji Couch M.D. [place] 268.9 Vitamin D Deficiency Unspec 272.1 Hypertriglyceridemia Pure 790.29 Other Abnormal Glucose Office Visit 01/22/2015 2:10p [facility] Arabella V72.81 Examination Medicine Brian Couch M.D. Preoperative [place] [facility] 327.23 Obstructive Sleep Apnea Adult & Pediatric 401.1 Hypertension Benign 346.81 Migraine Other W/ Intractable W/O Status Migrainosus 278.01 Obesity Morbid 250.02 Diabetes Mellitus W/O Compl Type II Or Unspec Type Uncontrol 268.9 Vitamin D Deficiency Unspec 272.2 Hyperlipidemia Mixed V72.83 Examination Preoperative Other Spec Office Visit 01/09/2015 11:30a Pulmonology And Alex Edouard, 327.23 Obstructive Sleep [facility] Apnea Adult & [facility] 401.9 Hypertension Unspec Office Visit 12/26/2014 2:30p [facility] Arabella 250.02 Diabetes Alhaji Couch M.D. Mellitus W/O [place] Compl Type II Or Unspec Type Uncontrol 346.81 Migraine Other W/ Intractable W/O Status Migrainosus 780.57 Unspecified Sleep Apnea 401.9 Hypertension Unspec Office Visit 05/04/2014 11:15a Orthopedic Angie Hou, 718.91 Derangement Joint [facility] [place] Unspec Shoulder C.M.A. Region 726.2 Shoulder Region Affections Other Not Elsewhere Class Office Visit 03/12/2014 2:00p Orthopedic Angiekhalida Hou, 718.91 Derangement Joint Services Of M.DParis Unspec Shoulder C.M.A. Region Office Visit 01/22/2014 2:45p Orthopedic Angie Hou, 726.11 Tendinitis Services Of M.D. Calcifying C.M.A. Shoulder 726.10 Bursae & Tendon Disorders Shoulder Region Unspec Office Visit 12/11/2013 1:00p Orthopedic Angie Hou 726.11 Tendinitis Services Of M.D. Calcifying C.M.A. Shoulder 726.10 Bursae & Tendon Disorders Shoulder Region Unspec Office Visit 11/27/2013 3:00p Orthopedic Angie 726.2 Shoulder Region [facility] [place] Hou Affections Other Not C.M.A. Elsewhere Class Office Visit 10/27/2013 11:15a Orthopedic Angie 726.2 Shoulder Region [facility] [place] Hou Affections Other Not C.M.A. Elsewhere Class Office Visit 10/02/2013 11:45a Orthopedic Angie 715.96 Osteoarthrosis [facility] [place] Hou Unspec Genlzd Or C.M.A. Localized Lower Leg 726.11 Tendinitis Calcifying Shoulder 726.2 Shoulder Region Affections Other Not Elsewhere Class Office Visit 09/15/2013 9:00a Orthopedic Angie 715.96 Osteoarthrosis [facility] [place] Hou Unspec Genlzd Or C.M.A. Localized Lower Leg 726.11 Tendinitis Calcifying Shoulder 726.2 Shoulder Region Affections Other Not Elsewhere Class 726.10 Bursae & Tendon Disorders Shoulder Region Unspec 719.06 Effusion Joint Lower Leg Office Visit 09/01/2013 10:15a Orthopedic Angie 715.96 Osteoarthrosis [facility] Hou Unspec Genlzd Or C.M.A. Localized Lower Leg 715.31 Osteoarthrosis Localzd Not Spec Prime Or 2Ndy Shoulder Office Visit 03/27/2013 1:25p [facility] Ashlee Taco, 346.00 Migraine Services Of Cass[facility] Gann Classical W/O Intractable W/O Status Migrainosus 782.0 Skin Sensation Disturbance 728.87 Muscle Weakness Generalized Office Visit 11/02/2012 11:00a Orthopedic Vivek Adorno 840.9 Sprains & Services Of Alyssa Felix C.M.Juan RicheyPParisAParis-C Shoulder & Upper Arm Unspec 923.00 Contusion Shoulder Region Office Visit 06/23/2010 3:30p Orthopedic Services Juliocesar Norris 844.9 Sprains & Of C.Stephanie Gann Strains Knee & Leg Unspec 719.06 Effusion Joint Lower Leg Office Visit 06/03/2010 1:30p Orthopedic Services Juliocesar Norris 844.9 Sprains & Of Felecia.Stephanie Gann Strains Knee & Leg Unspec 719.06 Effusion Joint Lower Leg Plan of Treatment Future Appointment(s):11/14/2018 11:10 am - Arabella Couch M.D. at [facility] - Zzxoruekk50/10/2019 9:45 am - Pavan Davis M.D. at [facility].08/29/2018 - Amy Melgoza, NPK63.5 Polyp of colonFollow up:As [id number] Encounter for change or removal of surgical wound dressing
[2018-09-14 20:34] VITALS: BP 133/56
--- NOTE | 2018-09-14 21:15 | UC ---
Skin Complaint HPI - HPI Summary HPI Summary: 53-year-old female presents with onset of redness, tenderness, and increased warmth to the skin around her abdominal surgical incisions. States she had an exploratory laparoscopy performed by Dr. Redd at [facility] [place] on 08/23/2018. Incisions had been healing well. Yesterday developed some mild erythema around the umbilical incision which progressively spread over the past 24 hours and now also has some redness around the incision to her right lower quadrant. States she has been diagnosed with type 2 diabetes in the past however has been able to manage her blood sugars with diet only since having her gastric bypass surgery. Denies fever, chills, weakness, abdominal pain, nausea, vomiting, or diarrhea. - History of Current Complaint Chief Complaint: UCSkin Time Seen by Provider: 09/14/18 21:12 Stated Complaint: SOFT TISSUE Hx Obtained From: Patient Hx Last Menstrual Period: menopause Pain Intensity: 5 - Allergy/Home Medications Allergies/Adverse Reactions: Allergies Allergy/AdvReac Type Severity Reaction Status Date / Time latex Allergy Severe Swelling Verified 09/14/18 20:26 prochlorperazine Allergy Intermediate Rash Verified 09/14/18 20:26 [From Compazine] promethazine [From Phenergan] Allergy Intermediate Rash Verified 09/14/18 20:26 trimethobenzamide Allergy Intermediate Rash Verified 09/14/18 20:26 [From Tigan] ibuprofen Allergy See Comment Verified 09/14/18 20:26 metoclopramide [From Reglan] Allergy Unknown Verified 09/14/18 20:26 Reaction Details omeprazole [From Prilosec] Allergy Unknown Verified 09/14/18 20:26 Reaction Details hydromorphone [From Dilaudid] AdvReac Severe Diaphoresis Verified 09/14/18 20:26 meperidine [From Demerol] AdvReac Severe Diaphoresis Verified 09/14/18 20:26 metformin AdvReac Severe Nausea And Verified 09/14/18 20:26 Vomiting morphine AdvReac Severe Diaphoresis Verified 09/14/18 20:26 tape Allergy Unknown Uncoded 09/14/18 20:26 Reaction Details PMH/Surg Hx/FS Hx/Imm Hx Endocrine History: Diabetes Cardiovascular History: Hypertension GI/ History: Other - colon polyp, ovarian cancer Other History Of: Negative For: Anticoagulant Therapy - Surgical History Surgical History: Yes Surgery Procedure, Year, and Place: GALLBLADDER , LEFT KNEE HIGH TIBIOSTEOTOMY, 2003 RT SHOULDER, 2008 RT ELBOW, C SECTION 1997, HYSTERECTOMY 2009; gastric bypass 2014. GASTRIC BANDING-1992. R total knee February 2018. Abdominal laporscopic surgery 07/2018 - Family History Known Family History: Positive: Cardiac Disease, Hypertension, Diabetes, Other - kidney stones. [place]. - Social History Occupation: Employed Full-time Lives: With Family Alcohol Use: Occasionally Substance Use Type: None Smoking Status (MU): Never Smoked Tobacco - Immunization History Most Recent Influenza Vaccination: NONE Most Recent Tetanus Shot: UTD Most Recent Pneumonia Vaccination: HAS NOT HAD Review of Systems All Other Systems Reviewed And Are Negative: Yes Constitutional: Negative: Fever, Chills Skin: Positive: Other - See HPI Respiratory: Negative: Shortness Of Breath Cardiovascular: Negative: Palpitations, Chest Pain Gastrointestinal: Negative: Abdominal Pain, Vomiting, Diarrhea, Nausea Is Patient Immunocompromised?: No Physical Exam Triage Information Reviewed: Yes Appearance: Well-Appearing, No Pain Distress, Obese Vital Signs: Initial Vital Signs Temp 98.4 F 09/14/18 20:24 Pulse 75 09/14/18 20:24 Resp 18 09/14/18 20:24 BP 133/56 09/14/18 20:24 Pulse Ox 98 09/14/18 20:24 Vital Signs Reviewed: Yes Respiratory: Positive: Lungs clear, Normal breath sounds Cardiovascular: Positive: RRR, No Murmur, Pulses Normal, Brisk Capillary Refill Abdomen Description: Positive: Nontender, No Organomegaly, Soft. Negative: Distended, Guarding Bowel Sounds: Positive: Present Neurological: Positive: Alert Skin: Positive: Significant Lesion(s) - 2 cm of erythema, induration, and tenderness around umbilical and RLQ abdominal incisions with mild erythema extending beyond the margins of induration approximately 3-4 cm. No fluctuance or discharge noted. Course/Dx - Course Course Of Treatment: 53-year-old female presents with onset of redness, tenderness, and increased warmth to the skin around her abdominal surgical incisions. States she had an exploratory laparoscopy performed by Dr. Redd at [facility] [place] on 08/23/2018. Incisions had been healing well. Yesterday developed some mild erythema around the umbilical incision which progressively spread over the past 24 hours and now also has some redness around the incision to her right lower quadrant. Denies fever, chills, weakness, abdominal pain, nausea, vomiting, or diarrhea. Afebrile. VSS. Exam revealed 2 cm of erythema, induration , and tenderness around umbilical and RLQ abdominal incisions with mild erythema extending beyond the margins of induration approximately 3-4 cm. No fluctuance or discharge noted. Exam otherwise benign. Will start her on Bactrim DS 1 tab BID x 7 days. She is to follow up with Dr. Redd within 3 days for wound recheck. Warning symptoms were reviewed with the patient. Verbalizes understanding and agrees with POC. - Differential Diagnoses - Skin Complaint Differential Diagnoses: Abscess, Cellulitis, MRSA - Diagnoses Provider Diagnosis: Cellulitis, wound, post-operative Discharge - Sign-Out/Discharge Documenting (check all that apply): Patient Departure All imaging exams completed and their final reports reviewed: No Studies - Discharge Plan Condition: Stable Disposition: HOME Prescriptions: Sulfamethox/Trimethoprim DS* [Bactrim DS 800/160 TAB*] 1 tab PO BID #14 tab Patient Education Materials: Cellulitis (ED) Referrals: Arabella Couch MD [Primary Care Provider] - Alex Redd MD [Medical Doctor] - 3 Days (Call tomorrow for appointment.) Additional Instructions: Your exam is consistent with a cellulitis (skin infection) of your abdomen at the sites of your surgical incisions. We will start you on an antibiotic for the infection. Take Bactrim DS 1 tab twice a day for 7 days. We gave you your first dose in the clinic. Take acetaminophen (Tylenol) as needed for pain. Follow up with Dr. Redd in 3 days for wound recheck. Call tomorrow for appointment. Seek immediate medical attention in the emergency room if you develop fever greater than 100.5 F, have increased redness, swelling, pain, pus draining from the wounds, severe abdominal pain, persistent vomiting, or any worsening of symptoms. - Billing Disposition and Condition Condition: STABLE Disposition: Home - Attestation Statements Provider Attestation: Per institutional requirements, I have reviewed the chart, however, I was not consulted specifically or made aware of this patient by the midlevel provider. I did not personally evaluate, interact with , or disposition this patient.
[2018-09-14] MEDS ORDERED: Sulfamethox/Trimethoprim DS 800/160* TAB PO ONE (21:28)
== END 2018-09-14 21:44 | disposition home or self-care (01) ==
LOC: UCEAST 20:17
DX: L03.311 Cellulitis of abdominal wall (principal); T81.89XA Other complications of procedures, not elsewhere classified, initial encounter; E11.9 Type 2 diabetes mellitus without complications; Z88.8 Allergy status to other drugs, medicaments and biological substances; Z88.6 Allergy status to analgesic agent; Z88.5 Allergy status to narcotic agent; I10 Essential (primary) hypertension
CPT/HCPCS: 99212; A9270-GY; G0463

== ENCOUNTER 2018-11-04 11:15 | Emergency (ER) | payer BC ==
[2018-11-04 13:16] VITALS: BP 123/61
[2018-11-04 13:31] LABS: Influenza A Molecular POSITIVE (Negative)
--- NOTE | 2018-11-04 13:43 | UC ---
FLU HPI - HPI Summary HPI Summary: 2 days of cough, sore throat, body aches, fevers/chills, headache and nausea. Known flu exposure. - History of Current Complaint Chief Complaint: UCRespiratory Stated Complaint: FLU LIKE SYM Time Seen by Provider: 11/04/18 12:52 Hx Obtained From: Patient Hx Last Menstrual Period: hysterectomy Onset/Duration: Gradual Onset, Lasting Days, Still Present Severity Currently: Moderate Severity Initially: Moderate Pain Intensity: 0 Pain Scale Used: 0-10 Numeric Associated Signs & Symptoms: Positive: Fever, Myalgia, Cough, Sore Throat, Nasal Congestion, Headache - Allergy/Home Medications Allergies/Adverse Reactions: Allergies Allergy/AdvReac Type Severity Reaction Status Date / Time latex Allergy Severe Swelling Verified 11/04/18 13:07 prochlorperazine Allergy Intermediate Rash Verified 11/04/18 13:07 [From Compazine] promethazine [From Phenergan] Allergy Intermediate Rash Verified 11/04/18 13:07 trimethobenzamide Allergy Intermediate Rash Verified 11/04/18 13:07 [From Tigan] ibuprofen Allergy See Comment Verified 11/04/18 13:07 metoclopramide [From Reglan] Allergy Unknown Verified 11/04/18 13:07 Reaction Details omeprazole [From Prilosec] Allergy Unknown Verified 11/04/18 13:07 Reaction Details hydromorphone [From Dilaudid] AdvReac Severe Diaphoresis Verified 11/04/18 13:07 meperidine [From Demerol] AdvReac Severe Diaphoresis Verified 11/04/18 13:07 metformin AdvReac Severe Nausea And Verified 11/04/18 13:07 Vomiting morphine AdvReac Severe Diaphoresis Verified 09/14/18 20:26 tape Allergy Unknown Uncoded 09/14/18 20:26 Reaction Details Home Medications: Home Medications Acetaminophen [Tylenol Extra Strength] 500 mg PO SEE INSTRUCTIONS PRN 11/04/18 [ History Confirmed 11/04/18] PMH/Surg Hx/FS Hx/Imm Hx - Additional Past Medical History Additional PMH: gastric bypass Other History Of: Negative For: Anticoagulant Therapy - Surgical History Surgical History: Yes Surgery Procedure, Year, and Place: GALLBLADDER , LEFT KNEE HIGH TIBIOSTEOTOMY, 2003 RT SHOULDER, 2007 RT ELBOW, C SECTION 1997, HYSTERECTOMY 2009; gastric bypass 2014, right knee replacement 03/14. GASTRIC BANDING-1992. R total knee February 2018. Abdominal laporscopic surgery 07/2018 - Family History Known Family History: Positive: Cardiac Disease, Hypertension, Diabetes, Other - kidney stones. [place]. - Social History Alcohol Use: Occasionally Substance Use Type: None Smoking Status (MU): Never Smoked Tobacco - Immunization History Most Recent Influenza Vaccination: NONE Most Recent Tetanus Shot: UTD Most Recent Pneumonia Vaccination: HAS NOT HAD Review of Systems All Other Systems Reviewed And Are Negative: Yes Constitutional: Positive: Fever, Chills, Fatigue ENT: Positive: Sore Throat, Nasal Discharge Respiratory: Positive: Cough Cardiovascular: Positive: Negative Gastrointestinal: Positive: Nausea. Negative: Vomiting, Diarrhea Musculoskeletal: Positive: Myalgia Neurological: Positive: Headache Physical Exam Triage Information Reviewed: Yes Appearance: Well-Nourished, Ill-Appearing - mild Vital Signs: Initial Vital Signs Temp 98.4 F 11/04/18 13:09 Pulse 90 11/04/18 13:09 Resp 18 11/04/18 13:09 BP 123/61 11/04/18 13:09 Pulse Ox 95 11/04/18 13:09 Laboratory Tests 11/04/18 13:27 Influenza A (Rapid) Positive A Vital Signs Reviewed: Yes Eyes: Positive: Conjunctiva Clear ENT: Positive: Hearing grossly normal, Pharynx normal, TMs normal Neck: Positive: Supple, Nontender, No Lymphadenopathy Respiratory Exam: Normal Cardiovascular Exam: Normal Abdomen Description: Positive: Soft Musculoskeletal: Positive: No Edema Neurological: Positive: Alert Psychological: Positive: Age Appropriate Behavior Skin: Negative: Rashes Flu Course/Dx - Differential Dx/Diagnosis Provider Diagnosis: Influenza A Discharge - Sign-Out/Discharge Documenting (check all that apply): Patient Departure All imaging exams completed and their final reports reviewed: No Studies - Discharge Plan Condition: Stable Disposition: HOME Prescriptions: Oseltamivir CAP* [Tamiflu CAP*] 75 mg PO BID #10 cap Patient Education Materials: Influenza (ED) Referrals: Arabella Couch MD [Primary Care Provider] - If Needed Additional Instructions: SWAB POSITIVE FOR INFLUENZA A. TAMIFLU TWICE DAILY FOR 5 DAYS. OTC MEDS NEEDED FOR FEVER, BODY ACHES. STAY WELL HYDRATED AND RESTED. SEEK FOLLOW-UP IF YOU ARE NOT IMPROVING EXPECTED. - Billing Disposition and Condition Condition: STABLE Disposition: Home
== END 2018-11-04 13:48 | disposition home or self-care (01) ==
LOC: UCEAST 11:15
DX: J10.1 Influenza due to other identified influenza virus with other respiratory manifestations (principal); Z91.09 Other allergy status, other than to drugs and biological substances; Z88.8 Allergy status to other drugs, medicaments and biological substances; Z88.5 Allergy status to narcotic agent; Z91.040 Latex allergy status
CPT/HCPCS: 99211; G0463

== ENCOUNTER 2019-04-17 13:26 | Emergency (ER) | payer BC ==
[2019-04-17] MEDS ORDERED: NS 0.9% 1000 ML** 1,000 ML IV ONE (15:08)
[2019-04-17] MEDS ORDERED: Ondansetron INJ* 2 MG/ML VIAL IV ONE (15:08)
[2019-04-17] MEDS ORDERED: Ketorolac INJ* 30 MG/ML 1 ML VIAL IV PUSH ONE (15:08)
--- NOTE | 2019-04-17 15:14 | UC ---
Headache HPI - HPI Summary HPI Summary: 53-year-old female presents with complaints of migraine headache. States the headache began last evening and progressively worsened throughout the night. She started developing some nausea and vomiting around 2 AM. Describes headache as a constant throbbing primarily on the left side. Has taken acetaminophen 1 dose without any relief. Associated with some photophobia. She denies any visual disturbances although she does state it feels like she is straining to see with her left eye. States she has had migraines in the past although it has been over 2 years since her last one. States she used to get them much more frequently before she had her bariatric surgery. States her current headache is very similar to migraines she has had in the past. States in the past she has also had some focal symptoms including right-sided facial droop and tongue deviation. Denies any focal symptoms at present although she did note that she was having a little bit of drooling last night from the right corner of her mouth. Denies fever, chills, nasal congestion, sinus pain, chest pain, palpitations, shortness of breath, abdominal pain, diarrhea, dizziness, vertigo, facial droop, slurred or difficulty speaking, weakness, numbness, or tingling of the arms or legs. - History Of Current Complaint Chief Complaint: UCHeadache Stated Complaint: HEADACHE Time Seen by Provider: 04/17/19 14:48 Hx Obtained From: Patient Hx Last Menstrual Period: hysterectomy Pain Intensity: 8 - Allergies/Home Medications Allergies/Adverse Reactions: Allergies Allergy/AdvReac Type Severity Reaction Status Date / Time latex Allergy Severe Swelling Verified 04/17/19 14:26 prochlorperazine Allergy Intermediate Rash Verified 04/17/19 14:26 [From Compazine] promethazine [From Phenergan] Allergy Intermediate Rash Verified 04/17/19 14:26 trimethobenzamide Allergy Intermediate Rash Verified 04/17/19 14:26 [From Tigan] ibuprofen Allergy See Comment Verified 04/17/19 14:26 metoclopramide [From Reglan] Allergy Unknown Verified 04/17/19 14:26 Reaction Details omeprazole [From Prilosec] Allergy Unknown Verified 04/17/19 14:26 Reaction Details hydromorphone [From Dilaudid] AdvReac Severe Diaphoresis Verified 04/17/19 14:26 meperidine [From Demerol] AdvReac Severe Diaphoresis Verified 04/17/19 14:26 metformin AdvReac Severe Nausea And Verified 04/17/19 14:26 Vomiting morphine AdvReac Severe Diaphoresis Verified 04/17/19 14:26 tape Allergy Unknown Uncoded 04/17/19 14:26 Reaction Details PMH/Surg Hx/FS Hx/Imm Hx Previously Healthy: Yes - Denies significant PMH Other History Of: Negative For: Anticoagulant Therapy - Surgical History Surgical History: Yes Surgery Procedure, Year, and Place: GALLBLADDER , LEFT KNEE HIGH TIBIOSTEOTOMY, 2003 RT SHOULDER, 2007 RT ELBOW, C SECTION 1997, HYSTERECTOMY 2009; gastric bypass 2014, right knee replacement 03/14. GASTRIC BANDING-1992. R total knee February 2018. Abdominal laporscopic surgery for colon cancer 07/2018 - Family History Known Family History: Positive: Cardiac Disease, Hypertension, Diabetes, Other - kidney stones. CA. - Social History Occupation: Employed Full-time Lives: With Family Alcohol Use: Occasionally Substance Use Type: None Smoking Status (MU): Never Smoked Tobacco - Immunization History Most Recent Influenza Vaccination: NONE Most Recent Tetanus Shot: UTD Most Recent Pneumonia Vaccination: HAS NOT HAD Review of Systems All Other Systems Reviewed And Are Negative: Yes Constitutional: Negative: Fever, Chills Skin: Negative: Rash Eyes: Positive: Photophobia. Negative: Blurred Vision, Diplopia, Drainage, Eye Redness ENT: Negative: Sore Throat, Ear Ache, Nasal Discharge, Sinus Congestion, Sinus Pain/Tenderness Respiratory: Negative: Shortness Of Breath Cardiovascular: Negative: Palpitations, Chest Pain Gastrointestinal: Positive: Vomiting, Nausea. Negative: Abdominal Pain, Diarrhea Genitourinary: Negative: Dysuria, Hematuria, Frequency, Urgency Musculoskeletal: Positive: Negative Neurological: Positive: Headache. Negative: Weakness, Paresthesia, Numbness Is Patient Immunocompromised?: No Physical Exam - Summary Physical Exam Summary: GENERAL APPEARANCE: Alert and cooperative obese female who appears to be in no acute distress. HEAD: Atraumatic. Normocephalic. EYES: Conjunctiva clear. No drainage. PERRL, EOM intact. Vision is grossly intact. EARS: External auditory canals and tympanic membranes clear, hearing grossly intact. NOSE: No nasal discharge. THROAT: Pharynx normal. No tonsilar inflammation, swelling, exudate, or lesions. Uvula midline. Oral cavity normal. Teeth and gingiva in good general condition. NECK: Neck supple, non-tender without lymphadenopathy. CARDIAC: Normal S1 and S2. No S3, S4 or murmurs. Rhythm is regular. There is no peripheral edema, cyanosis or pallor. Extremities are warm and well perfused. Capillary refill is less than 2 seconds. Peripheral pulses intact. LUNGS: Clear to auscultation without rales, rhonchi, wheezing or diminished breath sounds. ABDOMEN: Positive bowel sounds. Soft, nondistended, nontender. No guarding or rebound. No masses or hepatosplenomegally. MUSKULOSKELETAL: ROM intact to all extremities. No joint erythema or tenderness. Normal muscular development. Normal gait. NEUROLOGICAL: CN II-XII intact. Strength and sensation symmetric and intact throughout. Reflexes 2+ throughout. Cerebellar testing normal. SKIN: Skin normal color, texture and turgor with no lesions or eruptions. Triage Information Reviewed: Yes Vital Signs: Initial Vital Signs Temp 98.6 F 04/17/19 14:28 Pulse 57 04/17/19 14:28 Resp 16 04/17/19 14:28 BP 143/69 04/17/19 14:28 Pulse Ox 100 04/17/19 14:28 Vital Signs Reviewed: Yes Re-Evaluation - Re-Evaluation First Eval Re-Evaluation Time: 16:15 Comment: Patient states that after the medications her nausea has resolved however her headache is unchanged. She remains neurologically intact. She has received approximately 500 ml NS. Upon further conversation with the patient she does state that she has taken sumatriptam in the past without relief from her headaches and states that it caused severe nausea. We discussed the limitations for further pharmaceutical intervention considering her significant history of adverse reactions to medications and that if she did not have any further improvement we may need to recommend further evaluation in the emergency department. Patient states she would like to give the medications some more time to work and we will allow her IVF to finish. Second Eval Re-Evaluation Time: 16:46 Change: Improved Comment: Patient states that her headache is less intense. Rated as a 7/10 initially and states it is down to a 4-5/10 at present. She does not feel a CT scan is warranted at this time and feels she can continue to manage this at home. We will give her acetaminophen 650 mg PO prior to discharge. Headache Course/Dx - Course Course Of Treatment: 53-year-old female presents with complaints of migraine headache. States the headache began last evening and progressively worsened throughout the night. She started developing some nausea and vomiting around 2 AM. Describes headache as a constant throbbing primarily on the left side. Has taken acetaminophen 1 dose without any relief. Associated with some photophobia. She denies any visual disturbances although she does state it feels like she is straining to see with her left eye. States she has had migraines in the past although it has been over 2 years since her last one. States she used to get them much more frequently before she had her bariatric surgery. States her current headache is very similar to migraines she has had in the past. States in the past she has also had some focal symptoms including right-sided facial droop and tongue deviation. Denies any focal symptoms at present although she did note that she was having a little bit of drooling last night from the right corner of her mouth. Denies fever, chills, nasal congestion, sinus pain, chest pain, palpitations, shortness of breath, abdominal pain, diarrhea, dizziness, vertigo, facial droop, slurred or difficulty speaking, weakness, numbness, or tingling of the arms or legs. Afebrile. Hypertensive otherwise vital signs stable. Patient was neurologically intact and her exam was overall unremarkable. Patient reports multiple education allergies and states that she has received migraine medications in the past that were not effective although she is unsure of what she had received. Because of this we decided to treat with some IV fluids, ketorolac 30 mg IV, and ondansetron 8 mg IV after reviewing the risks and benefits of using an NSAID with a history of bariatric surgery. Patient did have cessation of her nausea and some improvement in her headache after receiving the IV fluids and medications. Patient felt at her headache was now manageable and was requesting to be discharged and continue care at home. She remained neurologically intact therefore I felt this was a reasonable approach. She is to follow-up with her primary care provider in one to 2 days if symptoms are not improving. Anticipatory guidance and warning symptoms requiring immediate evaluation in the emergency room were reviewed with the patient. Verbalizes understanding and agrees with plan of care. - Differential Dx/Diagnosis Differential Diagnosis/HQI/PQRI: Migraine, Tension Headache Provider Diagnosis: Migraine Discharge - Sign-Out/Discharge Documenting (check all that apply): Patient Departure All imaging exams completed and their final reports reviewed: No Studies - Discharge Plan Condition: Stable Disposition: HOME Prescriptions: Ondansetron [Ondansetron Odt] 4 mg PO Q6HR PRN #12 tab.rapdis PRN Reason: Nausea/Vomiting Patient Education Materials: Migraine Headache (ED) Forms: *Work Release Referrals: Arabella Couch MD [Primary Care Provider] - 2 Days Additional Instructions: Get plenty of rest and stay well hydrated. Continue to use acetaminophen (Tylenol) according to directions as needed for headache. You last received this at 4:50 pm. Use ondansetron (Zofran) 4 mg 1 tablet every 6 hours as needed for nausea or vomiting. You last received this at 3:50 pm. Follow up with your primary care provider in the next 1-2 days if no improvement in symptoms. Seek immediate medical attention in the emergency room if you have worsening of headache, dizziness, have visual disturbances, facial droop, slurred or difficulty speaking, weakness, numbness, or tingling in the arms or legs, persistent or projectile vomiting, or any worsening of symptoms. - Billing Disposition and Condition Condition: STABLE Disposition: Home
[2019-04-17 16:43] VITALS: BP 143/75
[2019-04-17] MEDS ORDERED: Acetaminophen TAB* 325 MG PO ONE (16:45)
== END 2019-04-17 17:00 | disposition home or self-care (01) ==
LOC: UCEAST 13:26
DX: G43.909 Migraine, unspecified, not intractable, without status migrainosus (principal); Z88.5 Allergy status to narcotic agent; Z91.040 Latex allergy status; Z98.84 Bariatric surgery status
CPT/HCPCS: 96360; 96374; 96375; 99212; A9270-GY; G0463; J1885; J2405

== ENCOUNTER 2019-06-05 18:28 | Emergency (ER) | payer BC, OTHER ==
--- NOTE | 2019-06-05 18:35 | UC ---
Lower Extremity/Ankle HPI - HPI Summary HPI Summary: 53 yo female presents with RIGHT 5th toe pain. She tells me that earlier today she stubbed her 5th right toe. Since that time has developed swelling, increased pain, and bruising. She has taken tylenol for her discomfort with little relief. Has worn more comfortable footwear and states that that helps. - History of Current Complaint Chief Complaint: UCLowerExtremity Stated Complaint: TOE INJURY Time Seen by Provider: 06/05/19 18:34 Hx Obtained From: Patient Hx Last Menstrual Period: hysterectomy Onset/Duration: Sudden Onset Severity Initially: Moderate Severity Currently: Moderate Pain Intensity: 7 Pain Scale Used: 0-10 Numeric - Allergies/Home Medications Allergies/Adverse Reactions: Allergies Allergy/AdvReac Type Severity Reaction Status Date / Time latex Allergy Severe Swelling Verified 06/05/19 18:38 prochlorperazine Allergy Intermediate Rash Verified 06/05/19 18:38 [From Compazine] promethazine [From Phenergan] Allergy Intermediate Rash Verified 06/05/19 18:38 trimethobenzamide Allergy Intermediate Rash Verified 06/05/19 18:38 [From Tigan] ibuprofen Allergy See Comment Verified 06/05/19 18:38 metoclopramide [From Reglan] Allergy Unknown Verified 06/05/19 18:38 Reaction Details omeprazole [From Prilosec] Allergy Unknown Verified 06/05/19 18:38 Reaction Details hydromorphone [From Dilaudid] AdvReac Severe Diaphoresis Verified 06/05/19 18:38 meperidine [From Demerol] AdvReac Severe Diaphoresis Verified 06/05/19 18:38 metformin AdvReac Severe Nausea And Verified 06/05/19 18:38 Vomiting morphine AdvReac Severe Diaphoresis Verified 06/05/19 18:38 tape Allergy Unknown Uncoded 06/05/19 18:38 Reaction Details PMH/Surg Hx/FS Hx/Imm Hx Endocrine History: Diabetes Other History Of: Negative For: Anticoagulant Therapy - Surgical History Surgical History: Yes Surgery Procedure, Year, and Place: GALLBLADDER , LEFT KNEE HIGH TIBIOSTEOTOMY, 2003 RT SHOULDER, 2007 RT ELBOW, C SECTION 1997, HYSTERECTOMY 2009; gastric bypass 2014, right knee replacement 03/14. GASTRIC BANDING-1992. R total knee February 2018. Abdominal laporscopic surgery for colon cancer 07/2018 - Family History Known Family History: Positive: Cardiac Disease, Hypertension, Diabetes, Other - kidney stones. [place]. - Social History Lives: With Family Alcohol Use: Occasionally Substance Use Type: None Smoking Status (MU): Never Smoked Tobacco - Immunization History Most Recent Influenza Vaccination: NONE Most Recent Tetanus Shot: UTD Most Recent Pneumonia Vaccination: HAS NOT HAD Review of Systems All Other Systems Reviewed And Are Negative: No Constitutional: Positive: Negative Skin: Positive: Negative Respiratory: Positive: Negative Cardiovascular: Positive: Negative Neurovascular: Positive: Negative Musculoskeletal: Positive: Other: - Toe pain Neurological: Positive: Negative Psychological: Positive: Negative Physical Exam - Summary Physical Exam Summary: GENERAL: NAD. WDWN. No pain distress. SKIN: No rashes, sores, lesions, or open wounds. CHEST: No accessory muscle use. Breathing comfortably and in no distress. CV: Pulses intact PT and DP. Cap refill <2seconds MSK: RIGHT 5th toe: Mild TTP at base with moderate overlying ecchymosis. FROM, but pain with flexion. No edema or obvious bony deformities. NEURO: Alert. Sensations intact and symmetric B/L LEs PSYCH: Age appropriate behavior. Triage Information Reviewed: Yes Vital Signs: Vital Signs: Temp Pulse Resp BP Pulse Ox 98.4 F 102 18 144/73 98 06/05/19 18:32 06/05/19 18:32 06/05/19 18:32 06/05/19 18:32 06/05/19 18:32 Vital Signs Reviewed: Yes Diagnostics - Radiology Foot XR Radiology Interpretation Completed By: ED Physician Summary of Radiographic Findings: No fx Lower Extremity Course/Dx - Course Course Of Treatment: Wet read negative for fx Advised to rest, ice, and continue tylenol for discomfort - Differential Dx/Diagnosis Provider Diagnosis: Toe contusion Discharge ED - Sign-Out/Discharge Documenting (check all that apply): Patient Departure All imaging exams completed and their final reports reviewed: No - Discharge Plan Condition: Stable Disposition: HOME Patient Education Materials: Foot Contusion (ED) Referrals: Arabella Couch MD [Primary Care Provider] - Additional Instructions: If you develop a fever, shortness of breath, chest pain, new or worsening symptoms - please call your PCP or go to the ED immediately. Your blood pressure was high at todays visit. Please see your primary provider within 4 weeks for recheck and re-evaluation. 1) Rest, ice, and elevate your toe to decrease pain and swelling 2) May continue taking tylenol as directed for discomfort - Billing Disposition and Condition Condition: STABLE Disposition: Home
--- OUTSIDE RECORDS SUMMARY | 2019-06-05 18:36 | XMS REPORT | Continuity of Care Document ---
:1965 External Reference #:[id number] Author Name Arabella Couch M.D. (transmitted by agent of provider Mary Jane Greco) Address [address], [place] [address] Care Team Providers Name Role Phone Arabella Couch MD - Internal Care Team Information Electrical Project Engineer [phone] Medicine Problems Active Problems Provider Date Osteoarthritis of knee Angie Hou M.D. Onset: 09/12/2013 Morbid obesity Arabella Couch M.D. Onset: 01/22/2015 Family history of malignant neoplasm of breast Arabella Couch M.D. Onset: Note: sister in her 40's Hypertriglyceridemia Arabella Couch M.D. Onset: 01/22/2015 Note: mild 188 Localized, primary osteoarthritis Angie Hou M.D. Onset: 10/15/2017 Tubulovillous adenoma of rectum Arabella Couch M.D. Onset: 07/11/2018 Arthroplasty of knee Pavan Davis M.D. Onset: 04/05/2019 Aftercare following joint replacement surgery Pavan Davis M.D. Onset: 06/2019 Social History Type Date Description Comments Sex Unknown Tobacco Use Start: Unknown Never Smoked Cigarettes ETOH Use Occasionally consumes alcohol Recreational Drug Use Denies Drug Use Tobacco Use Start: Unknown Patient has never smoked Smoking Status Reviewed: 05/17/19 Patient has never smoked Exercise Type/Frequency Does not exercise Exercise Type/Frequency walking 0.5 mile 3 times a wk started arielle last week Exercise Type/Frequency Exercises regularly Allergies, Adverse Reactions, Alerts Active Allergies Reaction Severity Comments Date Dilaudid diaphoretic 09/12/2013 Morphine diaphoretic 09/12/2013 Demerol diaphoretic 09/12/2013 Compazine rash 09/12/2013 Phenergan rash 09/12/2013 Tigan rash 09/12/2013 Reglan unknown 10/27/2013 Latex sensitivity 10/27/2013 Tape rash/red 10/27/2013 Metformin vomit 01/09/2015 Prilosec vomit 01/09/2015 Medications Active Medications SIG Qnty Indications Ordering Provider Date Fluoxetine HCL (PMDD) once a day 30caps F42.9 Arabella Couch, 05/17/2019 M.D. 20mg Capsules Propranolol HCL 2 tab daily 60tabs G43.109 Arabella Couch, 05/03/2019 10mg M.D. Tablets Sumatriptan Succinate 1 tab X1 then 14tabs G43.109 Arabella Couch, 2018 repeat after 2 M.D. 50mg Tablets hours in 24 hours Ibuprofen 3 Times A Day as 30tabs Unknown 04/18/2019 600mg Tablets Needed as needed for Pain Tylenol 2 tablets every 4 Unknown 325mg Capsules hours as needed for pain Vitamin D3 Super 1 by mouth every Unknown Strength day 2000Unit Capsules Hydrocodone-Acetamino Unknown phen 5-325mg Tablets Ondansetron Unknown 4mg Tablets Dispers History Medications Anexsia Every 4-6 Hours as 10tabs Unknown 04/18/2019 - 5-325mg Tablets Needed as needed for 04/20/2019 Pain Metoclopramide HCL 4 Times A Day as 10tabs Unknown 04/18/2019 - 10mg Tablets needed for Headache 05/03/2019 Medications Administered in Office Medication SIG Qnty Indications Ordering Provider Date Depomedrol 40MG Angie Hou M.D. 10/15/2017 Injection Depomedrol 80MG Angie Hou M.D. 09/15/2013 Injection Immunizations CPT Code Status Date Vaccine Lot # [id number] Given 03/10/2018 Tdap - Tetanus/Diptheria/Acellular Pertussis [id number] Refused 08/08/2018 Influenza Virus Vaccine, Quadrivalent, Split, Preservative Free Vital Signs Date Vital Result Comment 05/17/2019 2:16pm Height 64 inches 5'4" Weight 245.00 lb Heart Rate 76 /min BP Systolic Sitting 135 mmHg Rue reg cuff BP Diastolic Sitting 76 mmHg Rue reg cuff O2 % BldC Oximetry 96 % BMI (Body Mass Index) 42.0 kg/m2 05/03/2019 10:16am Height 64 inches 5'4" Weight 243.00 lb Heart Rate 69 /min BP Systolic Sitting 129 mmHg BP Diastolic Sitting 78 mmHg Pain Level 5 O2 % BldC Oximetry 97 % BMI (Body Mass Index) 41.7 kg/m2 Results Description No Information Available Procedures Date Code Description Status 08/23/2018 82860516 Colonoscopy Completed 2018 [id number] Colonoscopy Completed 04/20/2018 [id number] Mammogram Completed Medical Devices Description No Information Available Encounters Type Date Location Provider Dx Diagnosis Office Visit 05/03/2019 [facility] Arabella Couch, G43.109 Migraine with aura, 10:30a Medicine - Pedrito M.D. not intractable, w/o status migrainosus Office Visit 04/20/2019 [facility] Arabella Couch, G43.109 Migraine with aura, 10:50a Medicine Brian Major M.DParis not intractable, w/o status migrainosus F42.9 Obsessive-compulsive disorder, unspecified Office Visit 04/05/2019 [facility] M17.32 Unilateral 9:00a [facility] post-traumatic C.M.A. osteoarthritis, left knee Z47.1 Aftercare following joint replacement surgery Z96.651 Presence of right artificial knee joint Assessments Date Code Description Provider 05/17/2019 G43.109 Migraine with aura, not intractable, without Arabella Couch M.D. status migraino 05/17/2019 F42.9 Obsessive-compulsive disorder, unspecified Arabella Couch M.D. 05/03/2019 G43.109 Migraine with aura, not intractable, without Arabella Couch M.D. status migraino 04/20/2019 G43.109 Migraine with aura, not intractable, without Arabella Couch M.D. status migraino 04/20/2019 F42.9 Obsessive-compulsive disorder, unspecified Arabella Couch M.D. 04/05/2019 M17.32 Unilateral post-traumatic osteoarthritis, [facility] left knee 04/05/2019 Z96.651 Presence of right artificial knee joint Pavan Davis M.D. 04/05/2019 Z47.1 Aftercare following joint replacement surgery [facility] 04/05/2019 Z47.1 Aftercare following joint replacement surgery Pavan Davis M.D. 04/05/2019 Z96.651 Presence of right artificial knee joint [facility] Plan of Treatment Future Appointment(s):07/10/2019 10:50 am - Arabella Couch M.D. at [facility] - [facility]05/17/2019 - Arabella Couch M.D.G43.109 Migraine with aura, not intractable, without status migrainoComments:I am glad your headaches are improved so continue takign the preventive [id number] Obsessive- compulsive disorder, unspecifiedNew Medication:Fluoxetine HCL (PMDD) 20 mg - once a dayFollow up:july 10 2019 Functional Status Description No Information Available Mental Status Description No Information Available Referrals Refer to Dr Reason for Referral Status Appt Date Antonina Mcconnell LCSW Scheduled 05/17/[address] [place] [id number] [phone]
[2019-06-05 18:42] VITALS: BP 144/73
--- NOTE | 2019-06-06 10:18 | UC ---
- Progress Note Progress Note: reviewed R foot xrays from last evening in [facility]. no management changes at this time. Course/Dx - Diagnoses Provider Diagnoses: Toe contusion Discharge ED - Sign-Out/Discharge Documenting (check all that apply): Post-Discharge Follow Up All imaging exams completed and their final reports reviewed: Yes - Discharge Plan Condition: Stable Disposition: HOME Patient Education Materials: Foot Contusion (ED) Referrals: Arabella Couch MD [Primary Care Provider] - Additional Instructions: If you develop a fever, shortness of breath, chest pain, new or worsening symptoms - please call your PCP or go to the ED immediately. Your blood pressure was high at todays visit. Please see your primary provider within 4 weeks for recheck and re-evaluation. 1) Rest, ice, and elevate your toe to decrease pain and swelling 2) May continue taking tylenol as directed for discomfort - Billing Disposition and Condition Condition: STABLE Disposition: Home
== END 2019-06-05 19:45 | disposition home or self-care (01) ==
LOC: UCEAST 18:28
DX: S90.121A Contusion of right lesser toe(s) without damage to nail, initial encounter (principal); W22.8XXA Striking against or struck by other objects, initial encounter; Y92.9 Unspecified place or not applicable; E11.9 Type 2 diabetes mellitus without complications; Z91.040 Latex allergy status; Z88.5 Allergy status to narcotic agent
CPT/HCPCS: 99211; G0463

== ENCOUNTER 2019-09-03 14:30 | Emergency (ER) | payer BC, OTHER ==
[2019-09-03 14:39] VITALS: BP 145/82
--- NOTE | 2019-09-03 15:11 | UC ---
Lower Extremity/Ankle HPI - HPI Summary HPI Summary: 54-year-old female presents with complaints of left foot pain. States last evening she was carrying groceries, the handle broke on one of her bags which was full of canned goods, and it landed on top of her foot. States the foot ached all night and woke her from sleep several times. Reports she has been able to walk and bear weight since the injury however pain worsens with bearing weight and walking. Denies any numbness or tingling. - History of Current Complaint Chief Complaint: UCLowerExtremity Stated Complaint: FOOT INJURY Time Seen by Provider: 09/03/19 14:49 Hx Obtained From: Patient Hx Last Menstrual Period: hysterectomy Pain Intensity: 5 - Allergies/Home Medications Allergies/Adverse Reactions: Allergies Allergy/AdvReac Type Severity Reaction Status Date / Time latex Allergy Severe Swelling Verified 09/03/19 14:40 prochlorperazine Allergy Intermediate Rash Verified 09/03/19 14:40 [From Compazine] promethazine [From Phenergan] Allergy Intermediate Rash Verified 09/03/19 14:40 trimethobenzamide Allergy Intermediate Rash Verified 09/03/19 14:40 [From Tigan] ibuprofen Allergy See Comment Verified 09/03/19 14:40 metoclopramide [From Reglan] Allergy Unknown Verified 09/03/19 14:40 Reaction Details omeprazole [From Prilosec] Allergy Unknown Verified 09/03/19 14:40 Reaction Details hydromorphone [From Dilaudid] AdvReac Severe Diaphoresis Verified 09/03/19 14:40 meperidine [From Demerol] AdvReac Severe Diaphoresis Verified 09/03/19 14:40 metformin AdvReac Severe Nausea And Verified 09/03/19 14:40 Vomiting morphine AdvReac Severe Diaphoresis Verified 09/03/19 14:40 deon bandage Allergy Rash Uncoded 09/03/19 14:40 tape Allergy Unknown Uncoded 09/03/19 14:40 Reaction Details PMH/Surg Hx/FS Hx/Imm Hx Endocrine History: Diabetes Other History Of: Negative For: Anticoagulant Therapy - Surgical History Surgical History: Yes Surgery Procedure, Year, and Place: GALLBLADDER , LEFT KNEE HIGH TIBIOSTEOTOMY, 2003 RT SHOULDER, 2007 RT ELBOW, C SECTION 1997, HYSTERECTOMY 2009; gastric bypass 2014, right knee replacement 03/14. GASTRIC BANDING-1992. R total knee February 2018. Abdominal laporscopic surgery for colon cancer 07/2018 - Family History Known Family History: Positive: Cardiac Disease, Hypertension, Diabetes, Other - kidney stones. [place]. - Social History Occupation: Employed Full-time Lives: With Family Alcohol Use: Occasionally Substance Use Type: None Smoking Status (MU): Never Smoked Tobacco - Immunization History Most Recent Influenza Vaccination: NONE Most Recent Tetanus Shot: UTD Most Recent Pneumonia Vaccination: HAS NOT HAD Review of Systems All Other Systems Reviewed And Are Negative: Yes Constitutional: Positive: Negative Skin: Negative: Bruising Respiratory: Positive: Negative Cardiovascular: Positive: Negative Gastrointestinal: Positive: Negative Genitourinary: Positive: Negative Motor: Negative: Weakness Neurovascular: Negative: Decreased Sensation Musculoskeletal: Positive: Other: - See HPI Neurological: Positive: Negative Is Patient Immunocompromised?: No Physical Exam - Summary Physical Exam Summary: GENERAL APPEARANCE: Well developed, well nourished, alert and cooperative, and appears to be in no acute distress. CARDIAC: Normal S1 and S2. No S3, S4 or murmurs. Rhythm is regular. There is no peripheral edema, cyanosis or pallor. Extremities are warm and well perfused. Capillary refill is less than 2 seconds. Peripheral pulses intact. LUNGS: Clear to auscultation without rales, rhonchi, wheezing or diminished breath sounds. ABDOMEN: Positive bowel sounds. Soft, nondistended, nontender. No guarding or rebound. No masses or hepatosplenomegally. MUSKULOSKELETAL: ROM intact to all extremities. No joint erythema or tenderness. Normal muscular development. Limping gait. EXTREMITIES: Mild tenderness to the dorsal mid foot without gross deformity, ecchymosis, or edema. Circulation and sensation intact. SKIN: Skin normal color, texture and turgor with no lesions or eruptions. Triage Information Reviewed: Yes Vital Signs: Initial Vital Signs Temp 97.7 F 09/03/19 14:35 Pulse 81 09/03/19 14:35 Resp 18 09/03/19 14:35 BP 145/82 09/03/19 14:35 Pulse Ox 100 09/03/19 14:35 Vital Signs Reviewed: Yes Diagnostics - Radiology No standard instances Radiology Interpretation Completed By: Radiologist Summary of Radiographic Findings: Order Information: FOOT LEFT 3+ VWS. INDICATION: Left foot injury. TECHNIQUE: 3 views of the left foot were obtained. FINDINGS: The bone mineralization is within normal limits. A punctate ossific structure is seen interposed between the bases of the second and third proximal phalanges (annotated). Large calcaneal enthesophytes extend along the Achilles tendon and plantar fascia. Anatomic alignment is maintained. There is mild osteophyte. The the first MTP. IMPRESSION: 1. Punctate ossific structure interposed between the bases of the second and third proximal phalanges (annotated). Correlate with point tenderness. 2. Moderate first MTP a arthropathy. 3. Large calcaneal enthesophytes. Lower Extremity Course/Dx - Course Course Of Treatment: 54-year-old female presents with complaints of left foot pain. States last evening she was carrying groceries, the handle broke on one of her bags which was full of canned goods, and it landed on top of her foot. States the foot ached all night and woke her from sleep several times. Reports she has been able to walk and bear weight since the injury however pain worsens with bearing weight and walking. Denies any numbness or tingling. Afebrile. Hypertensive otherwise vital signs stable. Patient had mild tenderness to the dorsal mid foot without gross deformity, ecchymosis, or edema. Circulation and sensation intact. X-ray showed a punctate ossific structure is seen interposed between the bases of the second and third proximal phalanges. Reviewed results with the patient and explained that based on her exam I have a low suspicion that this is a fracture however will treat her for possible fracture at this time. She was placed in a postop shoe by the RN. Recommended conservative treatment including [id number] analgesics and RICE. She is to follow-up with orthopedic surgery in 3-5 days for further evaluation and treatment. Anticipatory guidance warning symptoms reviewed with the patient. Verbalizes understanding and agrees with plan of care. - Differential Dx/Diagnosis Differential Diagnosis/HQI/PQRI: Contusion, Dislocation, Fracture (Closed), Sprain Provider Diagnosis: Injury of left foot Discharge ED - Sign-Out/Discharge Documenting (check all that apply): Patient Departure All imaging exams completed and their final reports reviewed: Yes - Discharge Plan Condition: Stable Disposition: HOME Patient Education Materials: Foot Contusion (ED) Referrals: Arabella Couch MD [Primary Care Provider] - 5 Days Pavan Davis MD [Medical Doctor] - 3 Days (Call for appointment.) Additional Instructions: The x-ray performed in the clinic today showed evidence of a bony structure between the bases of the second and third proximal phalanges on a single view that may represent a fracture. Rest the foot as much as possible. You may continue to walk and bear weight as tolerated. Use the post-op shoe that was applied in the clinic. You may remove to sleep and shower but should wear at all other times. Apply ice to the affected area for 15-20 minutes at least 4 times a day to help with the pain and swelling. Elevate the foot to help reduce swelling. Take acetaminophen (Tylenol) or ibuprofen (Advil, Motrin) according to directions as needed for pain. Follow up with orthopedic surgery in 3-5 days for further evaluation and treatment. Seek immediate medical attention if you have severe pain not managed with pain medication, you are unable to walk or bear any weight, develop numbness or tingling in the foot or toes, or have any worsening of symptoms. - Billing Disposition and Condition Condition: STABLE Disposition: Home
== END 2019-09-03 15:46 | disposition home or self-care (01) ==
LOC: UCEAST 14:30
DX: S99.922A Unspecified injury of left foot, initial encounter (principal); E11.9 Type 2 diabetes mellitus without complications; M19.072 Primary osteoarthritis, left ankle and foot; M25.775 Osteophyte, left foot; Z91.040 Latex allergy status; Z88.8 Allergy status to other drugs, medicaments and biological substances; Z88.5 Allergy status to narcotic agent; Z91.09 Other allergy status, other than to drugs and biological substances; W20.8XXA Other cause of strike by thrown, projected or falling object, initial encounter; Y92.9 Unspecified place or not applicable
CPT/HCPCS: 99212; G0463

== ENCOUNTER 2019-10-12 11:29 | Emergency (ER) | payer BC ==
[2019-10-12 12:14] VITALS: BP 151/73
[2019-10-12 12:33] LABS: Influenza A Molecular NEGATIVE (Negative); Influenza B Molecular NEGATIVE (Negative)
--- NOTE | 2019-10-12 12:47 | UC ---
Throat Pain/Nasal Lazarus HPI - HPI Summary HPI Summary: 54-year-old woman comes in with a chief complaint of upper respiratory tract infection symptoms for several days. Patient has yellow rhinorrhea and postnasal drip. She does do some coughing. Denies any chest congestion. Does have a headache and bitemporal area. Had a fever yesterday. Did have a typical migraine headache 4 days ago and was seen at the [place] emergency Department for that. That headache is gone this is a different kind of headache that she has now. - History of Current Complaint Chief Complaint: UCRespiratory Stated Complaint: FLU LIKE SYMPTOMS Time Seen by Provider: 10/12/19 12:33 Hx Last Menstrual Period: hysterectomy Pain Intensity: 4 - Allergies/Home Medications Allergies/Adverse Reactions: Allergies Allergy/AdvReac Type Severity Reaction Status Date / Time latex Allergy Severe Swelling Verified 10/12/19 12:09 prochlorperazine Allergy Intermediate Rash Verified 10/12/19 12:09 [From Compazine] promethazine [From Phenergan] Allergy Intermediate Rash Verified 10/12/19 12:09 trimethobenzamide Allergy Intermediate Rash Verified 10/12/19 12:09 [From Tigan] ibuprofen Allergy See Comment Verified 10/12/19 12:09 metoclopramide [From Reglan] Allergy Unknown Verified 10/12/19 12:09 Reaction Details omeprazole [From Prilosec] Allergy Unknown Verified 10/12/19 12:09 Reaction Details hydromorphone [From Dilaudid] AdvReac Severe Diaphoresis Verified 10/12/19 12:09 meperidine [From Demerol] AdvReac Severe Diaphoresis Verified 10/12/19 12:09 metformin AdvReac Severe Nausea And Verified 10/12/19 12:09 Vomiting morphine AdvReac Severe Diaphoresis Verified 10/12/19 12:09 deon bandage Allergy Rash Uncoded 10/12/19 12:09 tape Allergy Unknown Uncoded 10/12/19 12:09 Reaction Details PMH/Surg Hx/FS Hx/Imm Hx Previously Healthy: Yes Other History Of: Negative For: Anticoagulant Therapy - Surgical History Surgical History: Yes Surgery Procedure, Year, and Place: GALLBLADDER , LEFT KNEE HIGH TIBIOSTEOTOMY, 2003 RT SHOULDER, 2007 RT ELBOW, C SECTION 1997, HYSTERECTOMY 2009; gastric bypass 2014, right knee replacement 03/14. GASTRIC BANDING-1992. R total knee February 2018. Abdominal laporscopic surgery for colon cancer 07/2018 - Family History Known Family History: Positive: Cardiac Disease, Hypertension, Diabetes, Other - kidney stones. [place]. - Social History Alcohol Use: Rare Substance Use Type: None Smoking Status (MU): Never Smoked Tobacco - Immunization History Most Recent Influenza Vaccination: NONE Most Recent Tetanus Shot: UTD Most Recent Pneumonia Vaccination: HAS NOT HAD Review of Systems All Other Systems Reviewed And Are Negative: Yes Constitutional: Positive: Other - SEE HPI Skin: Positive: Negative Eyes: Positive: Negative ENT: Positive: Sore Throat, Nasal Discharge, Sinus Congestion Respiratory: Positive: Cough Cardiovascular: Positive: Negative Gastrointestinal: Positive: Negative Motor: Positive: Negative Neurovascular: Positive: Negative Musculoskeletal: Positive: Negative Neurological: Positive: Negative Psychological: Positive: Negative Is Patient Immunocompromised?: No Physical Exam Triage Information Reviewed: Yes Appearance: No Pain Distress, Well-Nourished, Ill-Appearing - MILD Vital Signs: Initial Vital Signs Temp 96.9 F 10/12/19 12:04 Pulse 76 10/12/19 12:04 Resp 16 10/12/19 12:04 BP 151/73 10/12/19 12:04 Pulse Ox 96 10/12/19 12:04 Vital Signs Reviewed: Yes Eye Exam: Normal Eyes: Positive: Conjunctiva Clear ENT: Positive: Pharyngeal erythema, Nasal congestion, Nasal drainage, TMs normal Neck: Positive: Supple Respiratory: Positive: Lungs clear, Normal breath sounds, No respiratory distress Cardiovascular: Positive: RRR Musculoskeletal: Positive: Strength Intact, ROM Intact Neurological: Positive: Alert, Muscle Tone Normal Psychological: Positive: Age Appropriate Behavior Skin Exam: Normal Throat Pain/Nasal Course/Dx - Course Course Of Treatment: DISCUSSED VIRAL VERSES BACTERIAL INFECTIONS AND THE ROLE OF ANTIBIOTICS. THE PATIENT PREFERS TO BE ON ANTIBIOTICS AT THIS TIME. - Differential Dx/Diagnosis Provider Diagnosis: Sinusitis Discharge ED - Sign-Out/Discharge Documenting (check all that apply): Patient Departure All imaging exams completed and their final reports reviewed: No Studies - Discharge Plan Condition: Stable Disposition: HOME Prescriptions: Amoxicillin PO (*) [Amoxicillin 875 MG (*)] 875 mg PO BID #20 tab Patient Education Materials: Sinusitis (ED) Forms: *Work Release Referrals: Arabella Couch MD [Primary Care Provider] - Additional Instructions: FOLLOW UP WITH YOUR DOCTOR IF NOT COMPLETELY IMPROVED. GET REEVALUATED SOONER IF NOT IMPROVED OR WORSE OR ANY QUESTIONS OR CONCERNS. - Billing Disposition and Condition Condition: STABLE Disposition: Home
== END 2019-10-12 13:09 | disposition home or self-care (01) ==
LOC: UCEAST 11:29
DX: J32.9 Chronic sinusitis, unspecified (principal); Z91.040 Latex allergy status; Z88.8 Allergy status to other drugs, medicaments and biological substances; Z88.5 Allergy status to narcotic agent; Z91.09 Other allergy status, other than to drugs and biological substances
CPT/HCPCS: 99212; G0463

== ENCOUNTER 2020-01-24 18:18 | Emergency (ER) | payer BC ==
[2020-01-24 19:01] VITALS: BP 154/92
== END 2020-01-24 19:25 | disposition home or self-care (01) ==
LOC: UCEAST 18:18